=== PATIENT | male | born 1955 | race Caucasian/White ===

== ENCOUNTER 2020-07-01 11:25 | Outpatient (CLI) | payer SELFPAY ==
--- NOTE | 2020-07-01 11:37 | ECG_ITS ---
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 Interpretive Statements NAME OF STUDY: TREADMILL STRESS TEST INDICATION: [Chest Pain, ] EXERCISE DATA: The patient was exercised by Darrion protocol. Baseline heart rate was 64 beats per minute. Baseline blood pressure was 152/88 millimeters of mercury. Target heart rate was 134 beats per minute. Maximum heart rate achieved was 115bmp, which was 72% of the target heart rate. Maximum blood pressure was 249/105 millimeters of mercury. Total exercise time was 2 minutes 42 seconds. Maximum METs achieved was 4.6, maximum VO2 was 16.1. The reason for ending the test was fatiugue and inability to reach target heart rate. The patient complained of generalized fatigue during the stress test, which then resolved at the end of the test. ELECTROCARDIOGRAM: BASELINE: Showed sinus rhythm, normal axis, no significant ST-T changes at the baseline noted. [] EXERCISE: At the peak exercise level, No significant ST-T changes suggestive of ischemia noted. [] RECOVERY: During the recovery period, heart rate dropped appropriately. No significant ST-T changes in the recovery suggestive of ischemia noted. [] CONCLUSION: 1. Exercise capacity is poor 2. Heart rate response was suboptimal. Patient did not achieve target heart rate 3. Blood pressure response was hypertensive 4. Symptoms not suggestive of ischemia. 5. Stress test is non diagnostic to assess for ischemia because of poor exercise tolerance and inability to reach target heart rate. Electronically Signed On 07-06-2020 13:20:22 CHIEF KNOWLEDGE OFFICER by Nael Allison M.D. [id number]
[2020-07-01 11:39] VITALS: BMI 44.4
[2020-07-01 12:01] VITALS: BP 179/81; PULSE 83
== END 2020-07-01 11:26 | disposition home or self-care (01) ==
LOC: CDL 11:29
PROVIDERS: PCP Family Medicine; Visit Provider Family Medicine
DX: R07.9 Chest pain, unspecified (principal)
CPT/HCPCS: 93017

== ENCOUNTER 2020-10-29 12:13 | Outpatient (CLI) | payer SELFPAY ==
--- NOTE | 2020-10-29 12:21 | ECG_ITS ---
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 Interpretive Statements NAME OF STUDY: DOBUTAMINE STRESS ECHOCARDIOGRAM INDICATION: Chest Pain PROCEDURE: At the baseline, the blood pressure was 139/80 with a heart rate of 65. The electrocardiogram showed normal sinus rhythm with normal ST-T's.. The dobutamine was infused over a period of 11 minutes and 21 seconds. The maximum heart rate obtained was 134 (85 % of the maximum predicted heart rate). The blood pressure at that time was 133/39 mmHg. The patient did not have any chest pain or any significant electrocardiogram changes with the dobutamine infusion. Patient had some PVCs in the form of bigeminy with the dobutamine infusion. The physical examination remained unchanged. No arrhythmias were seen on the monitor. During the recovery phase, the patient did not have any specific symptoms. The blood pressure at the end of the recovery phase was 155/75 with a heart rate of 96 per minute. CONCLUSION: 1. No significant EKG changes with dobutamine fusion. 2. Dobutamine used ventricular arrhythmia. 3. No significant chest pain or any significant EKG changes with the dobutamine infusion 4. Sestamibi/Sestamibi perfusion scan pending; see separate report. Electronically Signed On 11-01-2020 17:38:54 CDT by Arsalan Alegria M.D. [id number]
[2020-10-29 12:56] VITALS: BMI 43.2
[2020-10-29] MEDS: perflutren protein-a microsphr 0.22 mg/mL SDV 3 mL IV (13:28)
--- NOTE | 2020-10-29 13:45 | USCV_ITS ---
Filiberto Mauro Age: 65 Gender: M : 1955 Exam Date: 10/29/2020 12:23 Ordering Phys: Arsalan Alegria MD ([email or web address]) Technologist: Javed Porter Exam Location: [facility] Indication: CHEST PAIN Rhythm: Sinus Patient History: HTN, OBESITY Cardiac Medications: CCB, BB Medications in past 24 hours: NONE Contrast: Total Dose (mL): Stress Results Protocol: Pharmacologic Peak Dose (???g/kg/min): 30 Duration (min:sec): 11:21 Atropine:(mg) Target HR: 133 Double Product: 26924 Resting HR: 64 Resting BP: 139 / 80 Peak HR: 134 Peak BP: 188 / 103 Max Predicted HR: 157 85 % Max Predicted HR Stress Summary: PATIENT WITH CHEST PAIN DURING THE INFUSION THAT RESOLVED DURING RECOVERY. BP Response: NORMAL Reason for Termination: TARGET HR REACHED Cardiac Symptoms: CHEST PAIN ECG Analysis Resting EKG: Please see separate report Stress EKG: Please see separate report Arrhythmia: Please see separate report MEASUREMENTS (Male/Female) Normal Values FINDINGS The echocardiogram was performed with the contrast injection. Basal echocardiogram revealed a normal LV size and ejection fraction. Segmental wall motion analysis revealing no gross wall motion normalities. The study quality is suboptimal.. With a low at the peak dobutamine infusion, there was good augmentation of all the segments with no dobutamine use wall motion normalities. During the recovery phase normalities wall motion returned to the baseline. CONCLUSIONS Normal echocardiographic response to dobutamine infusion No significant coronary ischemia, based on the above finding Dr Arsalan Alegria MD [facility] (Electronically Signed) Final Date: 29 October 2020 18:21 S
[2020-10-29 13:57] VITALS: BP 155/75; PULSE 98
== END 2020-10-29 12:14 | disposition home or self-care (01) ==
PROVIDERS: PCP Family Medicine; Visit Provider Internal Medicine Cardiovascular Disease
DX: R07.9 Chest pain, unspecified (principal)
CPT/HCPCS: 93017; 93350; 93352; Q9956

== ENCOUNTER 2021-05-24 08:59 | Observation (INO) | payer OTHER, SELFPAY ==
[2021-05-24] VITALS (17 sets, daily range): BP systolic 137–196; BP diastolic 76–109; PULSE 57–95; RESP 14–23; TEMP 35.6–36.8; O2SAT 5–98; BMI 43.7; BMI 41.1
--- NOTE | 2021-05-24 09:10 | CTR_ITS ---
PROCEDURE INFORMATION: Exam: CT Head Without Contrast Exam date and time: 05/24/2021 9:10 AM Age: 65 years old Clinical indication: Injury or trauma; Fall; Blunt trauma (contusions or hematomas); Injury details: Forehead; Additional info: Syncope, struck forehead TECHNIQUE: Imaging protocol: Computed tomography of the head without contrast. Total images: 203 Radiation optimization: All CT scans at this facility use at least one of these dose optimization techniques: automated exposure control; mA and/or kV adjustment per patient size (includes targeted exams where dose is matched to clinical indication); or iterative reconstruction. COMPARISON: No relevant prior studies available. RADIATION DOSE METRICS: Total DLP (mGy-cm): 689.16 FINDINGS: Brain: Normal. No hemorrhage. Unremarkable white matter. No mass effect. Cerebral ventricles: Irregular linear density projecting from the frontal horn of the right lateral ventricle to the cortex felt to represent a developmental venous anomaly. Paranasal sinuses: Visualized sinuses are unremarkable. No fluid levels. Mastoid air cells: Visualized mastoid air cells are well aerated. Bones/joints: Unremarkable. No acute fracture. Soft tissues: Right frontal scalp contusion noted. CT/CT head wo con* [id number] IMPRESSION: 1. No acute intracranial pathology detected. 2. Right frontal scalp contusion noted. Radiation Dose CTDIVOL = (mGy): DLP = 689.16 (mGy-cm)
--- NOTE | 2021-05-24 09:10 | XRR_ITS ---
PROCEDURE INFORMATION: Exam: XR Chest Exam date and time: 05/24/2021 9:10 AM Age: 65 years old Clinical indication: Injury or trauma; Fall; Blunt trauma (contusions or hematomas); Additional info: Syncope TECHNIQUE: Imaging protocol: XR of the chest. Views: 1 view. Total images: 1 COMPARISON: CR XR chest 2V* [id number] 05/10/2020 10:26 AM FINDINGS: Lungs: Nonspecific opacity in the right lung base, favoring contusion, atelectasis or pneumonia. Trace atelectasis or scar noted in the left lung base. Pleural spaces: Unremarkable. No pleural effusion. No pneumothorax. Heart/Mediastinum: Unremarkable. No cardiomegaly. Bones/joints: Osseous structures are unchanged from the prior exam. Soft tissues: Soft tissue anchor in the right glenoid. XR/XR chest 1V portable [id number] IMPRESSION: 1. Nonspecific opacity in the right lung base, favoring contusion, atelectasis or pneumonia. 2. Trace atelectasis or scar noted in the left lung base. Radiation Dose CTDIVOL = (mGy): DLP = (mGy-cm)
--- NOTE | 2021-05-24 09:10 | CTR_ITS ---
PROCEDURE INFORMATION: Exam: CT Cervical Spine Without Contrast Exam date and time: 05/24/2021 9:10 AM Age: 65 years old Clinical indication: Injury or trauma; Fall; Blunt trauma; Additional info: Syncope TECHNIQUE: Imaging protocol: Computed tomography images of the cervical spine without contrast. Total images: 320 Radiation optimization: All CT scans at this facility use at least one of these dose optimization techniques: automated exposure control; mA and/or kV adjustment per patient size (includes targeted exams where dose is matched to clinical indication); or iterative reconstruction. COMPARISON: CT head wo con* [id number] 05/24/2021 10:46 AM RADIATION DOSE METRICS: Total DLP (mGy-cm): 1018.22 FINDINGS: Bones/joints: No acute fracture. Normal alignment. Discs/Spinal canal/Neural foramina: C3-7 Degenerative disc disease with disc space narrowing and osteophyte formation. Uncovertebral joint degeneration is present. Lungs: Lung apices are normal. Soft tissues: Unremarkable. CT/CT cervical spin wo con* [id number] IMPRESSION: No acute findings. Radiation Dose CTDIVOL = (mGy): DLP = 1018.22 (mGy-cm)
--- NOTE | 2021-05-24 09:11 | ECG_ITS ---
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 Measurements Intervals [place] Rate: 78 P: 48 NM: 198 QRS: 3 QRSD: 98 T: 52 QT: 303 QTc: 347 Interpretive Statements SINUS RHYTHM NONSPECIFIC T-WAVE ABNORMALITY No previous ECG available for comparison Electronically Signed On 05-25-2021 0:25:17 CDT by Nael Allison M.D. [id number]
--- NOTE | 2021-05-24 09:13 | W.ED.SYNCOPE ---
Documented by User: RELL Todd 05/24/21 11:44 HPI - Syncope General: Chief Complaint: Syncope Stated Complaint: DIZZY; FOREHEAD PAIN S/P FALL Time Seen by Provider: 05/24/21 09:02 Source: patient and EMS Mode of arrival: EMS Limitations: no limitations and other (patient non-compliance ) History of Present Illness: HPI narrative: Patient is a 65-year-old male who presents to ED today via EMS for evaluation following a syncopal episode. Patient is a poor historian upon arrival. He tells me that he was trying to get out of his recliner when he became dizzy/lightheaded and fell forward and struck his head on the floor (carpet surface). He states he had positive loss of consciousness for approximately 2 minutes. Patient denies chest pain, shortness of breath, difficulty breathing, palpitations. He denies previous episodes of dizziness/lightheadedness or syncopal episodes. Patient states since the episode he has felt generally weak. He does not complain of specific weakness to his extremities or numbness/tingling. No facial droop or slurred speech noted upon arrival. Patient lives at home with his . He reports no medical conditions and apparently takes no medications however according to previous documentation he has a history of GERD, obesity, HTN, and chest pains. Patient had stress test/echocardiogram earlier this year. Results are as follows: Stress Echo 10/29/20 Normal echocardiographic response to dobutamine infusion No significant coronary ischemia, based on the above finding 1. No significant EKG changes with dobutamine fusion. 2. Dobutamine used ventricular arrhythmia. 3. No significant chest pain or any significant EKG changes with the dobutamine infusion Treadmill Stress Test 07/01/20 1. Exercise capacity is poor 2. Heart rate response was suboptimal. Patient did not achieve target heart rate 3. Blood pressure response was hypertensive 4. Symptoms not suggestive of ischemia. 5. Stress test is non diagnostic to assess for ischemia because of poor exercise tolerance and inability to reach target heart rate. MD complaint: loss of consciousness Onset (ago): minute(s) Duration of episode: 2 -: minutes(s) Prodromal symptoms: lightheaded Witnessed: No Injuries sustained associated with event: face (forehead hematoma) Associated symptoms: Reports lightheadedness; Deny abdominal pain, chest pain, fever(s), headache(s) or nausea Treatments prior to arrival: other (zofran as patient had one episode of emesis in route) Review of Systems Const: Denies: fever(s), chills, body aches, fatigue or malaise Eyes: Denies: change in vision, blurry vision or photophobia Card: Reports: lightheadedness and syncope; Denies: chest pain, palpitations, irregular heart rhythm, edema or pre-syncope Resp: Denies: dyspnea, productive cough, non-productive cough, pain on inspiration, hemoptysis or chest congestion GI: Denies: abdominal pain, nausea, vomiting or diarrhea : Denies: flank pain or dysuria Musc: Denies: neck pain, back pain, extremity pain or joint pain Skin/Breast: Denies: rash Neuro: Reports: dizziness; Denies: headache(s), numbness in extremities, weakness in extremities, sensory changes, lack of coordination, frequent falls, confusion, Slurred speech present or difficulty communicating thoughts PFSH ED PFSH: Medical History Atypical chest pain Benign essential HTN Exertional chest pain Hyperglycemia Obesity Obesity Surgical History History of repair of right rotator cuff Hx of foot surgery Hx of spinal surgery Family History Son Cancer Father CAD (coronary artery disease) Denies family history of Diabetes Clotting disorder Dementia Chronic kidney disease (CKD) Suicide Anesthesia complication Bleeding disorder Lung disease Stroke Social History Alcohol intake: never Physical Exam Const: COMMON NORMALS: no acute distress, patient oriented x3 and alert NUTRITIONAL APPEARANCE: obese morbidly obese ORIENTATION/CONSCIOUSNESS: Yes awake, Yes oriented to person, Yes oriented to place and Yes oriented to time OTHER: patient not very cooperative with examination and requests; he refuses to open his eyes and refuses certain cranial nerve testing HENMT: COMMON NORMALS: normocephalic and Normal external nose present HEAD & SCALP: normocephalic and other (R frontal hematoma) NOSE: Normal external nose present Eye: COMMON NORMALS: Equal, round and reactive pupils present PUPIL: Yes Equal, round and reactive pupils present OTHER: patient refuses to open his eyes during exam; lids were manually opened and he is able to look at my nose when asked; pupils are equal and responsive to light later during re-examination he does open his eyes with request and is able to track objects-I do not appreciate any gaze palsy Neck/C-Spine: COMMON NORMALS: full ROM, no lymphadenopathy and no meningeal signs CERVICAL SPINE: No pain with cervical ROM, No Cervical spine tenderness and No Paracervical muscle tenderness Resp: COMMON NORMALS: normal respiratory effort and clear to auscultation bilaterally AUSCULTATION: clear to auscultation bilaterally OTHER: pt noted to be hypoxic at roughly 88-89% on RA; he refuses oxygen Cardio: COMMON NORMALS: regular rate and regular rhythm RATE: regular rate RHYTHM: regular rhythm GI: COMMON NORMALS: Soft to palpation and non-tender INSPECTION: Yes normal to inspection AUSCULTATION: Yes normoactive bowel sounds PALPATION: Yes Soft to palpation OTHER: exam limited secondary to body habitus Extremity: COMMON NORMALS: normal to inspection, no calf tenderness and no pedal edema Neuro: SALLY COMA SCALE: document GCS findings [place] coma scale eye opening: Spontaneous Sally coma scale verbal response: Orientated Sally coma scale motor response: Obey commands [place] coma scale total score: 15 COMMON NORMALS: patient oriented x3 and CN's II-XII intact bilaterally SENSORIUM/ORIENTATION: Yes alert, Yes oriented to person, Yes oriented to place and Yes oriented to time MENINGEAL SIGNS: Yes no meningeal signs SPEECH: speech normal OTHER: patient can raise bilateral LEs off table and hold for 5+ seconds; he refuses to move either arm for motor testing; he will repairer engine production my fingers and repairer engine production strength equal bilaterally Course ED course: Patient is refusing CTs of head/cervical. He has also refused oxygen and urine. Vital Signs: Vital signs: Vital Signs Temperature 97.5 F L 05/24/21 12:17 Pulse Rate 90 05/24/21 14:06 Respiratory Rate 18 05/24/21 14:06 Blood Pressure 171/93 05/24/21 14:06 Pulse Oximetry 92 05/24/21 14:06 MDM - Syncope MDM Narrative: Medical decision making narrative: Patient is very drowsy and weak on exam. He does arrive hypoxic at 88% on room air. CXR shows a possible right lung base pneumonia. He does report a COVID infection approximately [address] head/cervical are non-acute. Labs are overall non-concerning. Patient nor his feels he is stable to go home. Spoke to Dr. Mejia who will also evaluate patient and speak to hospitalist regarding observation. Lab Data: Labs: Lab Results 05/24/21 05/24/21 05/24/21 09:00 09:00 09:00 WBC Cancelled Corrected WBC Cancelled RBC Cancelled Hgb Cancelled Hct Cancelled MCV Cancelled MCH Cancelled MCHC Cancelled RDW Cancelled Plt Count Cancelled MPV Cancelled Gran % Cancelled Neut % (Auto) Cancelled Lymph % (Auto) Cancelled Stearns % (Auto) Cancelled Eos % (Auto) Cancelled Baso % (Auto) Cancelled Neut # (Auto) Cancelled Lymph # (Auto) Cancelled Stearns # (Auto) Cancelled Eos # (Auto) Cancelled Baso # (Auto) Cancelled Absolute Gran (aut o) Cancelled Nucleated RBC % (a uto) Cancelled Nucleated RBCs # Cancelled Specimen Type Sample Site ABG pH ABG pCO2 ABG pO2 ABG HCO3 ABG O2 Saturation ABG Base Excess Joe Test Hematocrit Hgb O2 Saturation Carboxyhemoglobin Methemoglobin Total Hemoglobin Ionized Calcium O2 Delivery Device O2 Liters/Min Prosthetic Aides Teacher ID Sodium 142 mmol/L mmol/L (136-145) Potassium 3.7 mmol/L mmol/L (3.5-5.1) Chloride 107 mmol/L mmol/L (98-107) Carbon Dioxide 22 mmol/L mmol/L (22-29) Anion Gap 16.7 (5-19) BUN 13 mg/dL mg/dL (8-23) Creatinine 0.8 mg/dL mg/dL (0.7-1.2) GFR Calculation 97.6 mL/min mL/mi n (90-130) Glucose 154 mg/dL H mg/dL (65-115) Calculated Osmolal ity 297 mOsm/kg H mOs m/kg (285-295) Calcium 8.5 mg/dL mg/dL (8.5-10.5) Total Bilirubin 0.4 mg/dL mg/dL (0.15-1.2) AST 15 U/L U/L (0-40) ALT 19 U/L U/L (0-41) Alkaline Phosphata se 88 IU/L IU/L (40-130) Troponin T Baselin e 10 ng/L ng/L (0-15) Troponin T [address] [place] Troponin T Total Protein 6.1 g/dL L g/dL (6.6-8.7) Albumin 3.4 g/dL L g/dL (3.5-5.2) Globulin 2.7 g/dL g/dL (1.3-4.6) Urine Color Urine Appearance Urine pH Ur Specific Gravit y Urine Protein Urine Glucose (UA) Urine Ketones Urine Blood Urine Nitrate Urine Bilirubin Urine Urobilinogen Ur Leukocyte Kalie ase Urine Opiates Scre en Ur Barbiturates Sc reen Ur Phencyclidine S crn Ur Amphetamines Sc reen U Benzodiazepines Scrn Urine Cocaine Scre en U Marijuana (THC) Screen 05/24/21 05/24/21 05/24/21 09:47 10:52 11:14 WBC 9.1 10^3/uL 10^3/ uL (4.0-10.0) Corrected WBC RBC 4.34 10^6/uL 10^6 /uL (4.1-5.3) Hgb 12.1 g/dL g/dL (11.7-16.6) Hct 38.3 % L % (42.0-52.0) MCV 88.2 fl fl (80-94) MCH 27.9 pg L pg (28.0-34.0) MCHC 31.6 g/dL g/dL (30.0-36.0) RDW 18.9 % H % (12.1-15.1) Plt Count 377 10^3/cmm 10^3 /cmm (130-400) MPV 10.6 fL H fL (7.4-10.4) Gran % Neut % (Auto) 79.5 % % Lymph % (Auto) 11.5 % % Stearns % (Auto) 4.7 % % Eos % (Auto) 2.9 % % Baso % (Auto) 0.6 % % Neut # (Auto) 7.23 10^3/uL 10^3 /uL (1.8-7.7) Lymph # (Auto) 1.0 10^3/uL 10^3/ uL (0.8-4.8) Stearns # (Auto) 0.4 10^3/uL 10^3/ uL (0.2-0.9) Eos # (Auto) 0.3 10^3/uL 10^3/ uL (0.0-0.8) Baso # (Auto) 0.1 10^3/uL 10^3/ uL (0.0-0.1) Absolute Gran (aut o) Nucleated RBC % (a uto) 0 % % Nucleated RBCs # 0.0 /100WBC /100W BC Specimen Type Arterial Sample Site Radial, right ABG pH 7.33 L (7.35-7.45) ABG pCO2 49.5 mmHg H mmHg (35-45) ABG pO2 91.1 mmHg mmHg (80.0-100.0) ABG HCO3 26.3 mmol/L H mmo l/L (22-26) ABG O2 Saturation 97.3 ABG Base Excess -0.2 mmol/L mmol/ L (-2.0-2.0) Joe Test Pos Hematocrit 38.5 % L % (42-52) Hgb O2 Saturation 95.5 % % (95-100) Carboxyhemoglobin 0.9 %THgb %THgb (0.4-20.1) Methemoglobin 0.9 % % (0.4-1.5) Total Hemoglobin 12.5 g/dL L g/dL (14-18) Ionized Calcium 1.2 mmol/L mmol/L (1.1-1.4) O2 Delivery Device Nc O2 Liters/Min 2.0 % % Prosthetic Aides Teacher ID Broma Sodium 144.0 mmol/L H mm ol/L (131-143) Potassium 4.0 mmol/L mmol/L (3.5-5.0) Chloride Carbon Dioxide Anion Gap BUN Creatinine GFR Calculation Glucose 124.0 mg/dL H mg/ dL (70-115) Calculated Osmolal ity Calcium Total Bilirubin AST ALT Alkaline Phosphata se Troponin T Baselin e Troponin T [address] [place] Troponin T Total Protein Albumin Globulin Urine Color Yellow (Yellow) Urine Appearance Clear (CLEAR) Urine pH 5 (5-7) Ur Specific Gravit y 1.020 (1.005-1.030) Urine Protein Neg (Negative) Urine Glucose (UA) Norm (Normal) Urine Ketones Negative (Negative) Urine Blood Neg (Negative) Urine Nitrate Negative (Negative) Urine Bilirubin Neg (Negative) Urine Urobilinogen Norm mg/dL mg/dL (Negative) Ur Leukocyte Kalie ase Negative (Negative) Urine Opiates Scre en Ur Barbiturates Sc reen Ur Phencyclidine S crn Ur Amphetamines Sc reen U Benzodiazepines Scrn Urine Cocaine Scre en U Marijuana (THC) Screen 05/24/21 05/24/21 11:14 12:07 WBC Corrected WBC RBC Hgb Hct MCV MCH MCHC RDW Plt Count MPV Gran % Neut % (Auto) Lymph % (Auto) Stearns % (Auto) Eos % (Auto) Baso % (Auto) Neut # (Auto) Lymph # (Auto) Stearns # (Auto) Eos # (Auto) Baso # (Auto) Absolute Gran (aut o) Nucleated RBC % (a uto) Nucleated RBCs # Specimen Type Sample Site ABG pH ABG pCO2 ABG pO2 ABG HCO3 ABG O2 Saturation ABG Base Excess Joe Test Hematocrit Hgb O2 Saturation Carboxyhemoglobin Methemoglobin Total Hemoglobin Ionized Calcium O2 Delivery Device O2 Liters/Min Prosthetic Aides Teacher ID Sodium Potassium Chloride Carbon Dioxide Anion Gap BUN Creatinine GFR Calculation Glucose Calculated Osmolal ity Calcium Total Bilirubin AST ALT Alkaline Phosphata se Troponin T Baselin e Troponin T [address] [place] 10.08 ng/L ng/L (0-15) Delta Troponin T 0.08 ABS# ABS# (0-10) Total Protein Albumin Globulin Urine Color Urine Appearance Urine pH Ur Specific Gravit y Urine Protein Urine Glucose (UA) Urine Ketones Urine Blood Urine Nitrate Urine Bilirubin Urine Urobilinogen Ur Leukocyte Kalie ase Urine Opiates Scre en Negative ng/mL ng /mL (Negative) Ur Barbiturates Sc reen Negative ng/mL ng /mL (Negative) Ur Phencyclidine S crn Negative ng/mL ng /mL (Negative) Ur Amphetamines Sc reen Negative ng/mL ng /mL (Negative) U Benzodiazepines Scrn Negative ng/mL ng /mL (Negative) Urine Cocaine Scre en Negative ng/mL ng /mL (Negative) U Marijuana (THC) Screen Negative ng/mL ng /mL (Negative) Imaging Data^: CXR: Radiologist's impression: [facility] [address] [place] [address] XRay Report Signed Patient: Filiberto Mauro Unit #: [id number] : 1955 Age/Sex: 65 / M ADM Date: 05/24/21 Loc: ER Room/Bed: Attending Dr: Ordering Provider/Ordering MD: Janet Franklin Date of Service: 05/24/21 Procedure(s): XR chest 1V portable [id number] Accession Number(s): [id number] Report Number: [id number] PROCEDURE INFORMATION: Exam: XR Chest Exam date and time: 05/24/2021 9:10 AM Age: 65 years old Clinical indication: Injury or trauma; Fall; Blunt trauma (contusions or hematomas); Additional info: Syncope TECHNIQUE: Imaging protocol: XR of the chest. Views: 1 view. Total images: 1 COMPARISON: CR XR chest 2V* [id number] 05/10/2020 10:26 AM FINDINGS: Lungs: Nonspecific opacity in the right lung base, favoring contusion, atelectasis or pneumonia. Trace atelectasis or scar noted in the left lung base. Pleural spaces: Unremarkable. No pleural effusion. No pneumothorax. Heart/Mediastinum: Unremarkable. No cardiomegaly. Bones/joints: Osseous structures are unchanged from the prior exam. Soft tissues: Soft tissue anchor in the right glenoid. XR/XR chest 1V portable [id number] IMPRESSION: 1. Nonspecific opacity in the right lung base, favoring contusion, atelectasis or pneumonia. 2. Trace atelectasis or scar noted in the left lung base. Radiation Dose CTDIVOL = (mGy): DLP = (mGy-cm) Dictated By: Willy Darnell MD Signed By: Willy Darnell MD Signed Date/Time: 05/24/21 1016 DD/ 0910 CT Head: Radiologist's impression: [facility] [id number] [place], [place] [address]CE Scan ReportSigned Patient: Filiberto Mauro #: [id number]: 8Acct#:[id number]/Sex: 65 / MADM Date: 05/24/21Loc: ERRoom/Bed:Attending Dr: Ordering Provider/Ordering MD: Janet Franklin Date of Service: 05/24/21 Procedure(s): CT head wo con* [id number] Accession Number(s): [id number] Report Number: [id number] PROCEDURE INFORMATION: Exam: CT Head Without Contrast Exam date and time: 05/24/2021 9:10 AM Age: 65 years old Clinical indication: Injury or trauma; Fall; Blunt trauma (contusions or hematomas); Injury details: Forehead; Additional info: Syncope, struck forehead TECHNIQUE: Imaging protocol: Computed tomography of the head without contrast. Total images: 203 Radiation optimization: All CT scans at this facility use at least one of these dose optimization techniques: automated exposure control; mA and/or kV adjustment per patient size (includes targeted exams where dose is matched to clinical indication); or iterative reconstruction. COMPARISON: No relevant prior studies available. RADIATION DOSE METRICS: Total DLP (mGy-cm): 689.16 FINDINGS: Brain: Normal. No hemorrhage. Unremarkable white matter. No mass effect. Cerebral ventricles: Irregular linear density projecting from the frontal horn of the right lateral ventricle to the cortex felt to represent a developmental venous anomaly. Paranasal sinuses: Visualized sinuses are unremarkable. No fluid levels. Mastoid air cells: Visualized mastoid air cells are well aerated. Bones/joints: Unremarkable. No acute fracture. Soft tissues: Right frontal scalp contusion noted. CT/CT head wo con* [id number] IMPRESSION: 1. No acute intracranial pathology detected. 2. Right frontal scalp contusion noted. Radiation Dose CTDIVOL = (mGy): DLP = 689.16 (mGy-cm) Dictated By:Willy Darnell MDSigned By:Willy Darnell MDSigned Date/Time:05/24/21 1115DD/ 0910 CT cervical: Radiologist's impression: [facility] [address] [place] [address] CT Scan Report Signed Patient: Filiberto Mauro Unit #: [id number] : 1955 Age/Sex: 65 / M ADM Date: 05/24/21 Loc: ER Room/Bed: Attending Dr: Ordering Provider/Ordering MD: Janet Franklin Date of Service: 05/24/21 Procedure(s): CT cervical spin wo con* [id number] Accession Number(s): [id number] Report Number: [id number] PROCEDURE INFORMATION: Exam: CT Cervical Spine Without Contrast Exam date and time: 05/24/2021 9:10 AM Age: 65 years old Clinical indication: Injury or trauma; Fall; Blunt trauma; Additional info: Syncope TECHNIQUE: Imaging protocol: Computed tomography images of the cervical spine without contrast. Total images: 320 Radiation optimization: All CT scans at this facility use at least one of these dose optimization techniques: automated exposure control; mA and/or kV adjustment per patient size (includes targeted exams where dose is matched to clinical indication); or iterative reconstruction. COMPARISON: CT head wo con* [id number] 05/24/2021 10:46 AM RADIATION DOSE METRICS: Total DLP (mGy-cm): 1018.22 FINDINGS: Bones/joints: No acute fracture. Normal alignment. Discs/Spinal canal/Neural foramina: C3-7 Degenerative disc disease with disc space narrowing and osteophyte formation. Uncovertebral joint degeneration is present. Lungs: Lung apices are normal. Soft tissues: Unremarkable. CT/CT cervical spin wo con* [id number] IMPRESSION: No acute findings. Radiation Dose CTDIVOL = (mGy): DLP = 1018.22 (mGy-cm) Dictated By: Willy Darnell MD Signed By: Willy Darnell MD Signed Date/Time: 05/24/21 1116 DD/ 9 Discharge Plan Discharge Patient Disposition: Placed in Observation Admit Provider: Kevin Benson Clinical Impression: Syncope, Obesity, Atypical chest pain, Benign essential HTN Condition: Stable Coding Level of Care Code ED Technical Sourcing Recruiter for Chg Fwd Exam Comprehensive Documented by User: Manuel Mejia DO 05/24/21 14:08 HPI - Syncope General: Chief Complaint: Syncope Stated Complaint: DIZZY; FOREHEAD PAIN S/P FALL Time Seen by Provider: 05/24/21 09:02 PFSH ED PFSH: Medical History Atypical chest pain Benign essential HTN Exertional chest pain Hyperglycemia Obesity Obesity Surgical History History of repair of right rotator cuff Hx of foot surgery Hx of spinal surgery Family History Son Cancer Father CAD (coronary artery disease) Denies family history of Diabetes Clotting disorder Dementia Chronic kidney disease (CKD) Suicide Anesthesia complication Bleeding disorder Lung disease Stroke Social History Alcohol intake: never Course Vital Signs: Vital signs: Vital Signs Temperature 97.5 F L 05/24/21 12:17 Pulse Rate 90 05/24/21 14:06 Respiratory Rate 18 05/24/21 14:06 Blood Pressure 171/93 05/24/21 14:06 Pulse Oximetry 92 05/24/21 14:06 MDM - Syncope Lab Data: Labs: Lab Results 05/24/21 05/24/21 05/24/21 09:00 09:00 09:00 WBC Cancelled Corrected WBC Cancelled RBC Cancelled Hgb Cancelled Hct Cancelled MCV Cancelled MCH Cancelled MCHC Cancelled RDW Cancelled Plt Count Cancelled MPV Cancelled Gran % Cancelled Neut % (Auto) Cancelled Lymph % (Auto) Cancelled Stearns % (Auto) Cancelled Eos % (Auto) Cancelled Baso % (Auto) Cancelled Neut # (Auto) Cancelled Lymph # (Auto) Cancelled Stearns # (Auto) Cancelled Eos # (Auto) Cancelled Baso # (Auto) Cancelled Absolute Gran (aut o) Cancelled Nucleated RBC % (a uto) Cancelled Nucleated RBCs # Cancelled Specimen Type Sample Site ABG pH ABG pCO2 ABG pO2 ABG HCO3 ABG O2 Saturation ABG Base Excess Joe Test Hematocrit Hgb O2 Saturation Carboxyhemoglobin Methemoglobin Total Hemoglobin Ionized Calcium O2 Delivery Device O2 Liters/Min Prosthetic Aides Teacher ID Sodium 142 mmol/L mmol/L (136-145) Potassium 3.7 mmol/L mmol/L (3.5-5.1) Chloride 107 mmol/L mmol/L (98-107) Carbon Dioxide 22 mmol/L mmol/L (22-29) Anion Gap 16.7 (5-19) BUN 13 mg/dL mg/dL (8-23) Creatinine 0.8 mg/dL mg/dL (0.7-1.2) GFR Calculation 97.6 mL/min mL/mi n (90-130) Glucose 154 mg/dL H mg/dL (65-115) Calculated Osmolal ity 297 mOsm/kg H mOs m/kg (285-295) Calcium 8.5 mg/dL mg/dL (8.5-10.5) Total Bilirubin 0.4 mg/dL mg/dL (0.15-1.2) AST 15 U/L U/L (0-40) ALT 19 U/L U/L (0-41) Alkaline Phosphata se 88 IU/L IU/L (40-130) Troponin T Baselin e 10 ng/L ng/L (0-15) Troponin T [address] [place] Troponin T Total Protein 6.1 g/dL L g/dL (6.6-8.7) Albumin 3.4 g/dL L g/dL (3.5-5.2) Globulin 2.7 g/dL g/dL (1.3-4.6) Urine Color Urine Appearance Urine pH Ur Specific Gravit y Urine Protein Urine Glucose (UA) Urine Ketones Urine Blood Urine Nitrate Urine Bilirubin Urine Urobilinogen Ur Leukocyte Kalie ase Urine Opiates Scre en Ur Barbiturates Sc reen Ur Phencyclidine S crn Ur Amphetamines Sc reen U Benzodiazepines Scrn Urine Cocaine Scre en U Marijuana (THC) Screen 05/24/21 05/24/21 05/24/21 09:47 10:52 11:14 WBC 9.1 10^3/uL 10^3/ uL (4.0-10.0) Corrected WBC RBC 4.34 10^6/uL 10^6 /uL (4.1-5.3) Hgb 12.1 g/dL g/dL (11.7-16.6) Hct 38.3 % L % (42.0-52.0) MCV 88.2 fl fl (80-94) MCH 27.9 pg L pg (28.0-34.0) MCHC 31.6 g/dL g/dL (30.0-36.0) RDW 18.9 % H % (12.1-15.1) Plt Count 377 10^3/cmm 10^3 /cmm (130-400) MPV 10.6 fL H fL (7.4-10.4) Gran % Neut % (Auto) 79.5 % % Lymph % (Auto) 11.5 % % Stearns % (Auto) 4.7 % % Eos % (Auto) 2.9 % % Baso % (Auto) 0.6 % % Neut # (Auto) 7.23 10^3/uL 10^3 /uL (1.8-7.7) Lymph # (Auto) 1.0 10^3/uL 10^3/ uL (0.8-4.8) Stearns # (Auto) 0.4 10^3/uL 10^3/ uL (0.2-0.9) Eos # (Auto) 0.3 10^3/uL 10^3/ uL (0.0-0.8) Baso # (Auto) 0.1 10^3/uL 10^3/ uL (0.0-0.1) Absolute Gran (aut o) Nucleated RBC % (a uto) 0 % % Nucleated RBCs # 0.0 /100WBC /100W BC Specimen Type Arterial Sample Site Radial, right ABG pH 7.33 L (7.35-7.45) ABG pCO2 49.5 mmHg H mmHg (35-45) ABG pO2 91.1 mmHg mmHg (80.0-100.0) ABG HCO3 26.3 mmol/L H mmo l/L (22-26) ABG O2 Saturation 97.3 ABG Base Excess -0.2 mmol/L mmol/ L (-2.0-2.0) Joe Test Pos Hematocrit 38.5 % L % (42-52) Hgb O2 Saturation 95.5 % % (95-100) Carboxyhemoglobin 0.9 %THgb %THgb (0.4-20.1) Methemoglobin 0.9 % % (0.4-1.5) Total Hemoglobin 12.5 g/dL L g/dL (14-18) Ionized Calcium 1.2 mmol/L mmol/L (1.1-1.4) O2 Delivery Device Nc O2 Liters/Min 2.0 % % Prosthetic Aides Teacher ID Broma Sodium 144.0 mmol/L H mm ol/L (131-143) Potassium 4.0 mmol/L mmol/L (3.5-5.0) Chloride Carbon Dioxide Anion Gap BUN Creatinine GFR Calculation Glucose 124.0 mg/dL H mg/ dL (70-115) Calculated Osmolal ity Calcium Total Bilirubin AST ALT Alkaline Phosphata se Troponin T Baselin e Troponin T [address] [place] Troponin T Total Protein Albumin Globulin Urine Color Yellow (Yellow) Urine Appearance Clear (CLEAR) Urine pH 5 (5-7) Ur Specific Gravit y 1.020 (1.005-1.030) Urine Protein Neg (Negative) Urine Glucose (UA) Norm (Normal) Urine Ketones Negative (Negative) Urine Blood Neg (Negative) Urine Nitrate Negative (Negative) Urine Bilirubin Neg (Negative) Urine Urobilinogen Norm mg/dL mg/dL (Negative) Ur Leukocyte Kalie ase Negative (Negative) Urine Opiates Scre en Ur Barbiturates Sc reen Ur Phencyclidine S crn Ur Amphetamines Sc reen U Benzodiazepines Scrn Urine Cocaine Scre en U Marijuana (THC) Screen 05/24/21 05/24/21 11:14 12:07 WBC Corrected WBC RBC Hgb Hct MCV MCH MCHC RDW Plt Count MPV Gran % Neut % (Auto) Lymph % (Auto) Stearns % (Auto) Eos % (Auto) Baso % (Auto) Neut # (Auto) Lymph # (Auto) Stearns # (Auto) Eos # (Auto) Baso # (Auto) Absolute Gran (aut o) Nucleated RBC % (a uto) Nucleated RBCs # Specimen Type Sample Site ABG pH ABG pCO2 ABG pO2 ABG HCO3 ABG O2 Saturation ABG Base Excess Joe Test Hematocrit Hgb O2 Saturation Carboxyhemoglobin Methemoglobin Total Hemoglobin Ionized Calcium O2 Delivery Device O2 Liters/Min Prosthetic Aides Teacher ID Sodium Potassium Chloride Carbon Dioxide Anion Gap BUN Creatinine GFR Calculation Glucose Calculated Osmolal ity Calcium Total Bilirubin AST ALT Alkaline Phosphata se Troponin T Baselin e Troponin T [address] [place] 10.08 ng/L ng/L (0-15) Delta Troponin T 0.08 ABS# ABS# (0-10) Total Protein Albumin Globulin Urine Color Urine Appearance Urine pH Ur Specific Gravit y Urine Protein Urine Glucose (UA) Urine Ketones Urine Blood Urine Nitrate Urine Bilirubin Urine Urobilinogen Ur Leukocyte Kalie ase Urine Opiates Scre en Negative ng/mL ng /mL (Negative) Ur Barbiturates Sc reen Negative ng/mL ng /mL (Negative) Ur Phencyclidine S crn Negative ng/mL ng /mL (Negative) Ur Amphetamines Sc reen Negative ng/mL ng /mL (Negative) U Benzodiazepines Scrn Negative ng/mL ng /mL (Negative) Urine Cocaine Scre en Negative ng/mL ng /mL (Negative) U Marijuana (THC) Screen Negative ng/mL ng /mL (Negative) Discharge Plan Discharge Patient Disposition: Placed in Observation Admit Provider: Kevin Benson Clinical Impression: Syncope, Obesity, Atypical chest pain, Benign essential HTN Condition: Stable Coding Level of Care Code ED Technical Sourcing Recruiter for Chg Fwd Exam Comprehensive
[2021-05-24 09:36] LABS: Alanine Aminotransferase 19 U/L (0-41); Albumin Level 3.4 g/dL (3.5-5.2); Alkaline Phosphatase 88 IU/L (40-130); Anion Gap 16.7 (5-19); Aspartate Amino Transferase 15 U/L (0-40); Blood Urea Nitrogen 13 mg/dL (8-23); Calcium 8.5 mg/dL (8.5-10.5); Carbon Dioxide 22 mmol/L (22-29); Chloride 107 mmol/L (98-107); Creatinine Clr Calc Pharmacy 152.6669; Globulin 2.7 g/dL (1.3-4.6); Glomerular Filtration Rate 97.6 mL/min (90-130); Glucose 154 mg/dL (65-115); Osmolality Calculated 297 mOsm/kg (285-295); Potassium 3.7 mmol/L (3.5-5.1); Sodium 142 mmol/L (136-145); Total Bilirubin 0.4 mg/dL (0.15-1.2); Total Protein 6.1 g/dL (6.6-8.7); Troponin(5th) Baseline 10 ng/L (0-15)
[2021-05-24 09:53] LABS: Basophils # 0.1 10^3/uL (0.0-0.1); Basophils % 0.6 %; Eosinophils # 0.3 10^3/uL (0.0-0.8); Eosinophils % 2.9 %; Hematocrit 38.3 % (42.0-52.0); Hemoglobin 12.1 g/dL (11.7-16.6); Lymphocytes % 11.5 %; Mean Corpuscular HGB Conc 31.6 g/dL (30.0-36.0); Mean Corpuscular Hemoglobin 27.9 pg (28.0-34.0); Mean Corpuscular Volume 88.2 fl (80-94); Mean Platelet Volume 10.6 fL (7.4-10.4); Monocytes # 0.4 10^3/uL (0.2-0.9); Monocytes % 4.7 %; Neutrophils # 7.23 10^3/uL (1.8-7.7); Neutrophils % 79.5 %; Nucleated Red Blood Cells % 0 %; Platelet Count 377 10^3/cmm (130-400); Red Blood Count 4.34 10^6/uL (4.1-5.3); Red Cell Distribution Width 18.9 % (12.1-15.1); White Blood Count 9.1 10^3/uL (4.0-10.0)
[2021-05-24 11:03] LABS: ABG PCO2 49.5 mmHg (35-45); ABG PH Result 7.33 (7.35-7.45); Arterial Blood Gas Hematocrit 38.5 % (42-52); Base Excess ABG -0.2 mmol/L (-2.0-2.0); Blood Gas Allen Test Pos; Blood Gas Operator Identificat BROMA; Blood Gas Sample Site Radial, right; Blood Gas Sample Type Arterial; Carboxyhemoglobin 0.9 %THgb (0.4-20.1); HCO3 ABG 26.3 mmol/L (22-26); HGB O2 Sat 95.5 % (95-100); Ionized Calcium Level - ABG 1.2 mmol/L (1.1-1.4); Methemoglobin 0.9 % (0.4-1.5); Oxygen Device NC; Oxygen Saturation ABG 97.3; PO2 ABG 91.1 mmHg (80.0-100.0); Total Hemoglobin 12.5 g/dL (14-18)
--- NOTE | 2021-05-24 11:11 | ECG_ITS ---
[facility] Test Date: 2021-05-24 Pat Name: Filiberto Mauro Department: Room: Gender: Male Legal Job Titles: : 1955 Requested By: Janet Franklin Order Number: [id number] Lachelle MD: Arsalan Alegria M.D. Measurements Intervals [place] Rate: 69 P: 57 MO: 198 QRS: 10 QRSD: 100 T: 29 QT: 405 QTc: 435 Interpretive Statements SINUS RHYTHM Compared to ECG 05/24/2021 09:22:21 T-wave abnormality no longer present Electronically Signed On 05-25-2021 18:38:33 CDT by Arsalan Alegria M.D. [id number]
[2021-05-24 11:22] LABS: Add Urine Microscopic? NO; Charge for UA Resulting for Rev
[2021-05-24 11:25] LABS: Bilirubin Urine Neg (Negative); Blood Urine Neg (Negative); Glucose Urine UA Norm (Normal); Ketones Urine Negative (Negative); Leukocyte Esterase Urine Negative (Negative); Nitrate Urine Negative (Negative); Protein Urine Neg (Negative); Urine Appearance Clear (CLEAR); Urine Color Yellow (Yellow); Urobilinogen Urine Norm (Negative); pH Urine 5 (5-7)
[2021-05-24 11:34] LABS: Amphetamines Screen Urine Negative (Negative); Barbiturates Screen Urine Negative (Negative); Benzodiazepines Screen Urine Negative (Negative); Cocaine Screen Urine Negative (Negative); Opiate Screen Urine Negative (Negative); PCP Screen Urine Negative (Negative); THC Screen Urine Negative (Negative)
[2021-05-24 12:43] LABS: Troponin 5 2HR 10.08 ng/L (0-15); Troponin 5 2HR Delta 0.08 ABS# (0-10)
--- NOTE | 2021-05-24 14:04 | PC.NURSE ---
Called and gave report to Matilda SZYMANSKI. Pt going to [phone].
--- NOTE | 2021-05-24 14:42 | PM.HP ---
Providers/Chief Complaint Admitting Physician: Kevin Benson MD Primary Care Provider: Donnie Manuel MD Chief Complaint: DIZZY; FOREHEAD PAIN S/P FALL History of Present Illness Filiberto Mauro is a 65 year old male with past medical history of hypertension not on medication, atypical chest pain with CAD ruled out with dobutamine stress test in September 2020 as he was unable to do Lexiscan stress test because of claustrophobia presented to the ER today after having one episode of syncope and presyncope when he woke up and tried to get out of bed today morning. He states he usually sleeps in recliner. Today morning when he woke up he was feeling dizzy and when he stood up he lost his balance and fell face forward. He hit his head on hardwood floor. Denies any chest pain, palpitation, weakness in any of his arms or legs, bowel or bladder accidents prior or during the episode. As per his he did have an episode of vomiting at home and while he was brought to the ER. He denies any changes in his medications, fever, sick contacts recently. As per his he does have episodes at night when he is not breathing and has to be woken up to reinitiate breathing, snores for quite some time has never been tested or diagnosed of sleep apnea. He states usually his blood pressures are running over 180s at home and is not on medications for the same. Blood work in the ER shows a white count of 12, ABG showing a pH of 7.33, PCO2 of 49.5, PO2 of 91 on 2 L oxygen supplementation, chemistry showing a sodium 142, potassium 3.7, creatinine 0.8, AST/ALT of 15/19, UA and drug screen within normal limits with chest x-ray, CT head as below. Review of Systems General: Reports: 10 or more systems reviewed and unremarkable except in HPI and below Const: Denies: fever(s), chills, body aches, change in appetite, change in weight, malaise, night sweats, diaphoresis, change in sleep pattern, daytime sleepiness or snoring Eyes: Denies: change in vision, blurry vision, photophobia, eye discomfort or eye discharge ENMT: Denies: throat pain, enlarged tonsils, hoarseness, mouth pain, oral sores, dry mouth, tinnitus, nasal congestion or post nasal drip Card: Denies: chest pain, palpitations, irregular heart rhythm, edema, swelling of feet/ankles, lightheadedness, syncope, pre-syncope, dyspnea on exertion, orthopnea, leg pain with exertion or acrocyanosis Resp: Denies: dyspnea, productive cough, non-productive cough, wheezing, stridor, pain on inspiration, change in phlegm color, hemoptysis or chest congestion GI: Denies: abdominal pain, nausea, vomiting, hematemesis, coffee ground emesis, dysphagia, heartburn, diarrhea, constipation, bloating, GI cramping, change in bowel habits, pain on defecation, hematochezia or melena : Denies: flank pain, difficulty urinating, dysuria, urinary frequency, urinary urgency, urinary hesitancy, urinary dribbling, difficulty starting urination, change in urine stream, nocturia or hematuria Musc: Denies: neck pain, back pain, extremity pain, joint pain, joint swelling, joint redness, joint stiffness or limited range of motion Neuro: Denies: headache(s), numbness in extremities, weakness in extremities, sensory changes, lack of coordination, difficulty walking, frequent falls, dizziness, vertigo, confusion, Slurred speech present, difficulty communicating thoughts or seizure-like activity Psych: Denies: anxiety, depression, mood swings, panic attacks, hopelessness or irritability Endo: Denies: polyuria, polydipsia, tired all the time, cold intolerance, excessive sweating, flushing or heat intolerance Song/Lymph: Denies: easy bruising or easy bleeding All/Imm: Denies: tongue swelling, facial swelling or acute wheezing Medications/Allergies Home Medications Medication Instructions Recorded Confirmed Last Taken Type metoprolol tartrate 25 mg tablet 25 mg PO BID 30 Days #60 tab 02/27/21 05/24/21 05/23/21 Rx aspirin 81 mg chewable tablet 81 mg PO DAILY 90 Days #90 tab 03/31/21 05/24/21 05/23/21 Rx nitroglycerin 0.4 mg sublingual 0.4 mg SUBLINGUAL Q5M PRN 30 Days 03/31/21 05/24/21 Unknown Rx tablet #30 tab pantoprazole 40 mg granules 40 mg PO DAILY ea 03/31/21 05/24/21 05/23/21 History delayed-release for susp in packet Allergies Allergy/AdvReac Type Severity Reaction Status Date / Time No Known Allergies Allergy Verified 03/31/21 12:06 PFSH Acute PFSH: Medical History (Updated 05/24/21 @ 15:17 by Kevin Benson MD) Atypical chest pain Benign essential HTN Exertional chest pain Hyperglycemia Morbid obesity Surgical History History of repair of right rotator cuff Hx of foot surgery Hx of spinal surgery Family History Son Cancer Father CAD (coronary artery disease) Denies family history of Diabetes Clotting disorder Dementia Chronic kidney disease (CKD) Suicide Anesthesia complication Bleeding disorder Lung disease Stroke Social History Alcohol intake: never Vitals/I&O/Wt Last Vital Signs Temp 97.5 F L 05/24/21 12:17 Pulse 57 L 05/24/21 14:11 Resp 19 H 05/24/21 14:11 BP 171/93 05/24/21 14:11 Pulse Ox 5 L 05/24/21 14:11 Weight last 48 hrs Weight 149.43 kg Weight 158.757 kg Physical Exam Narrative: EXAM NARRATIVE: General: No acute distress, AO x3, morbidly obese, forehead hematoma present. HEENT: PERRLA, pupils bilaterally equal and reactive Chest: Normal vesicular breath sounds, no added sounds, equal good air entry bilaterally CVS: S1-S2 regular, no murmurs, bradycardia, no gallops, no rubs Abdomen: Soft, nontender, no organomegaly, bowel sounds present Neuro: No focal deficits, no facial deformity, AO x3, power 5/5 in all limbs Data : 05/24/21 09:47 05/24/21 09:00 A&P Assessment and plan (1) Syncope: Status: Acute (2) Fatigue: Status: Acute Qualifiers: Fatigue type: unspecified Qualified Code(s): R53.83 - Other fatigue (3) Benign essential HTN: Status: Acute (4) Morbid obesity: Status: Acute (5) Pickwickian syndrome: Status: Suspected Additional A&P Information Syncope/fatigue: Most likely secondary to chronic undiagnosed sleep apnea in setting of morbid obesity, possibility of pickwickian syndrome. PCO2 on the ABG done in the ER on the higher side, is history of snoring and episodes of apnea almost every night increasing for last few months. Can be secondary to bradycardia noticed in the ER. CAD ruled out from recent dobutamine stress test. Plan continue with troponin cycle. Stroke unlikely as patient has no deficits currently. Urine drug screen within normal limits. Check procalcitonin, TSH, iron panel, overnight pulse oximetry for possible sleep apnea, ammonia levels, HbA1c, lipid panel, urine Legionella bacterial antigen, MRSA swab. Check orthostatics. Check echocardiogram. Hypertension: Uncontrolled chronically. Goal blood pressure less than 140/90 mmHg. Start on losartan 25 mg daily, hydrochlorothiazide 25 mg daily. Decrease dose of metoprolol to 12.5 mg twice daily. Bradycardia: Decrease dose of metoprolol as above. Did have episode of arrhythmia during dobutamine stress test. Telemetry. Full code. Cardiac diet. Protonix for PUD prophylaxis. Heparin for DVT prophylaxis. Attestations Medical Necessity Statement*: Admission for less than 2 midnights for observation for further management and evaluation of syncope Time Spent in Patient Care: Greater than 35 minutes (>than 50% of time spent in counselling and/or direct pt care on unit). Coding Level of Care Code Acute Vocational Rehabilitation Specialist for [facility] Keshav Diagnoses Syncope R55 Fatigue R53.83 Fatigue type: unspecified Benign essential HTN I10 Morbid obesity E66.01 Pickwickian syndrome E66.2
--- NOTE | 2021-05-24 15:11 | ECG_ITS ---
[facility] Test Date: 2021-05-24 Pat Name: Filiberto Mauro Department: Room: 270 Gender: Male Line Tester: : 1955 Requested By: Janet Franklin Order Number: [id number] Lachelle MD: Arsalan Alegria M.D. Measurements Intervals [place] Rate: 71 P: 52 VA: 188 QRS: 15 QRSD: 99 T: 55 QT: 396 QTc: 432 Interpretive Statements SINUS RHYTHM Compared to ECG 05/24/2021 11:20:00 No significant changes Electronically Signed On 05-25-2021 18:38:41 CDT by Arsalan Alegria M.D. [id number]
[2021-05-24] MEDS: ipratropium-albuterol 3 mL Neb INHALATION ×2 (15:24→20:15)
[2021-05-24 15:25] LABS: Thyroid Stimulating Hormone 2.03 uIU/mL (0.27-4.20)
[2021-05-24 15:27] LABS: NT Pro B Type Natriuretic Pept 143 pg/mL (0-125); Procalcitonin 0.05 ng/mL (0-0.5)
[2021-05-24] MEDS: heparin 5,000 unit/mL INJ 1 mL 5000 UNIT SUBCUT ×2 (15:33→22:02)
[2021-05-24] MEDS: hydroCHLOROthiazide 25 mg Tablet PO (15:33)
[2021-05-24] MEDS: acetaminophen 325 mg Tablet 650 MG PO ×2 (15:33→22:01)
[2021-05-24] MEDS: levofloxacin-dextrose 5 % 750 MG/150 ML PREMIX 100 MG IV (15:34)
[2021-05-24] MEDS: losartan 50 mg Tablet 25 MG PO (15:34)
[2021-05-24 15:37] LABS: Iron 41 ug/dL (59-158); Percent Saturation 11.3 % (20-50); Total Iron Binding Capacity 361 mcg/dl; Unsaturated Iron Binding 320 ug/dL (112-347)
[2021-05-24 16:07] LABS: D Dimer 1.35 ug/mIFEU (0-0.59)
[2021-05-24 16:11] LABS: Ammonia 28 umol/L (16-60)
[2021-05-24 16:14] LABS: Troponin 5 6HR 10.93 ng/L (0-15); Troponin 5 6HR Delta 0.93 ng/L (0-12)
[2021-05-24] MEDS: metoprolol tartrate 25 mg Tablet 12.5 MG PO (17:32)
[2021-05-24] MEDS: budesonide 0.5 mg/2 mL Neb INHALATION (20:15)
[2021-05-25] VITALS (9 sets, daily range): BP systolic 130–143; BP diastolic 71–78; PULSE 68–87; RESP 16–18; TEMP 36.7–37.1; O2SAT 91–94
[2021-05-25] MEDS: ipratropium-albuterol 3 mL Neb INHALATION (01:55)
[2021-05-25] MEDS: acetaminophen 325 mg Tablet 650 MG PO (03:36)
--- NOTE | 2021-05-25 05:43 | PC.NURSE ---
SHIFT SUMMARY Has rested for intervals. Had cont pulse oximetry tonight and was noted to be in 90's every time in room. Has had no c/o SOB. Received po Tylenol X2 for c/o headache. Once was after breathing tx which he did not like. Stated it made him cough and made his head hurt. Did not like the way it made him feel. Talked with RT about this. Has denied any dizziness when up tonight. Has some bruising and swollen area to forehead from fall yesterday. Had c/o some pain with urination tonight. Says started after catheter was placed in the ER yesterday. Denies difficulty or decreased urine output
--- NOTE | 2021-05-25 06:31 | PC.NURSE ---
AM LABS/ECHO Pt has refused labs and ECHO as of this time. Told both to come back later.
[2021-05-25] MEDS: hydroCHLOROthiazide 25 mg Tablet PO (08:02)
[2021-05-25] MEDS: pantoprazole DR 40 mg Tablet PO (08:03)
[2021-05-25] MEDS: metoprolol tartrate 25 mg Tablet 12.5 MG PO (08:03)
[2021-05-25] MEDS: losartan 50 mg Tablet 25 MG PO (08:03)
[2021-05-25] MEDS: aspirin 81 mg Chew Tablet PO (08:03)
[2021-05-25] MEDS: budesonide 0.5 mg/2 mL Neb INHALATION (08:04)
[2021-05-25 09:41] LABS: Alanine Aminotransferase 16 U/L (0-41); Albumin Level 3.1 g/dL (3.5-5.2); Alkaline Phosphatase 74 IU/L (40-130); Anion Gap 12.1 (5-19); Aspartate Amino Transferase 12 U/L (0-40); Blood Urea Nitrogen 13 mg/dL (8-23); Calcium 9.3 mg/dL (8.5-10.5); Carbon Dioxide 27 mmol/L (22-29); Chloride 106 mmol/L (98-107); Chol HDL Ratio 3.03 mg/dL (1.0-5.00); Cholesterol 121 mg/dL (0-200); Globulin 2.8 g/dL (1.3-4.6); Glomerular Filtration Rate 75.5 mL/min (90-130); Glucose 123 mg/dL (65-115); HDL Cholesterol 40 mg/dL (60-100); LDL Cholesterol Calculated 66 mg/dL (50-129); Magnesium 1.8 mg/dL (1.7-2.3); Osmolality Calculated 293 mOsm/kg (285-295); Phosphorus 4.7 mg/dL (2.5-4.5); Potassium 4.1 mmol/L (3.5-5.1); Sodium 141 mmol/L (136-145); Total Bilirubin 0.3 mg/dL (0.15-1.2); Total Protein 5.9 g/dL (6.6-8.7); Triglycerides 75 mg/dL (0-150); VLDL Cholestrol Calculation 15 mg/dL (0-30)
[2021-05-25 10:33] LABS: Basophils # 0.1 10^3/uL (0.0-0.1); Basophils % 0.7 %; Eosinophils # 0.3 10^3/uL (0.0-0.8); Eosinophils % 3.1 %; Hemoglobin 11.3 g/dL (11.7-16.6); Lymphocytes # 1.5 10^3/uL (0.8-4.8); Lymphocytes % 16.8 %; Mean Corpuscular HGB Conc 30.5 g/dL (30.0-36.0); Mean Corpuscular Hemoglobin 26.7 pg (28.0-34.0); Mean Corpuscular Volume 87.3 fl (80-94); Mean Platelet Volume 11.7 fL (7.4-10.4); Monocytes # 0.4 10^3/uL (0.2-0.9); Monocytes % 4.7 %; Neutrophils # 6.81 10^3/uL (1.8-7.7); Neutrophils % 74.2 %; Nucleated Red Blood Cells % 0 %; Platelet Count 351 10^3/cmm (130-400); Red Blood Count 4.24 10^6/uL (4.1-5.3); Red Cell Distribution Width 17.9 % (12.1-15.1); White Blood Count 9.2 10^3/uL (4.0-10.0)
[2021-05-25 10:46] LABS: Estmated Average Glucose 123; Hemoglobin A1C 5.9 % (4.0-6.0)
--- NOTE | 2021-05-25 10:51 | PC.CHAP ---
Pastoral Care Encounter/Spiritual Assessment Type of Contact [] Declined distribution analyst visit [] Patient/Family/Request visit [] Outpatient visit [] Follow-up visit [] Physician referral [] Code/Alert [x] Routine visit [] Staff referral [] Actively dying [] Patient sleeping [] Family support [] [] Out of room [] Palliative care [] [] Receiving care in room [] Pre-surgical visit [] Trauma [] Long length of stay [] ICU visit [] Other: Relational/Emotional Strength [x] Patient feels connected with others/family/visitors/staff [] Distress [] Loneliness/isolation [] Abandonment Spirituality of Patient [x] Person of [place] [] Attends Episcopalian of their [place] [x] Believes in Prayer [] Reads Bible or Orthodoxy materials [] There are Spiritual issues to be addressed Process Coach Interventions [x Prayer [x] Active listening [x] Non-anxious presence [x] Spiritual/emotional support [] Crisis/trauma care [] Spiritual counseling [] Bereavement support [] Provided bereavement packet [] Provided Bible/devotional materials [] Provided toy/stuffed animal, coloring book to patient or family member [] Provided Communion [] Anointing/[place] [] Salvation [x] Completed spiritual assessment [] Other: Impact on Illness or Injury [] Angry [] Fearful [] Anxious [] Often cries [] Exhaustion [] Unable to work [] Unable to attend mormonism [] Unable to walk/stand [] Unable to read [] Unable to drive [] Unable to eat/drink [] Unable to sleep [] Unable to be with family [] Patient intubated [] Other: Summary Process Coach prayed with Patient. Time spent with patient 8 minutes.
--- NOTE | 2021-05-25 11:38 | PM.DCS ---
Discharge Providers Date of Admission: 05/24/21 14:24 Date of Discharge: May 25, 2021 Attending Provider at Admission: Kevin Benson MD Attending Provider at Discharge: Kevin Benson MD Primary Care Provider: Donnie Manuel MD Diagnoses at Discharge Discharge Diagnosis (1) Syncope: Status: Acute (2) Fatigue: Status: Acute Qualifiers: Fatigue type: unspecified Qualified Code(s): R53.83 - Other fatigue (3) Benign essential HTN: Status: Acute (4) Morbid obesity: Status: Acute (5) Pickwickian syndrome: Status: Suspected Reason for Visit Reason for Visit: DIZZY; FOREHEAD PAIN S/P FALL Hospital Course Hospital Course Filiberto Mauro is a 65 year old male with past medical history of hypertension not on medication, atypical chest pain with CAD ruled out with dobutamine stress test in September 2020 as he was unable to do Lexiscan stress test because of claustrophobia presented to the ER today after having one episode of syncope and presyncope when he woke up and tried to get out of bed today morning. He states he usually sleeps in recliner. Today morning when he woke up he was feeling dizzy and when he stood up he lost his balance and fell face forward. He hit his head on hardwood floor. Denies any chest pain, palpitation, weakness in any of his arms or legs, bowel or bladder accidents prior or during the episode. As per his he did have an episode of vomiting at home and while he was brought to the ER. He denies any changes in his medications, fever, sick contacts recently. As per his he does have episodes at night when he is not breathing and has to be woken up to reinitiate breathing, snores for quite some time has never been tested or diagnosed of sleep apnea. He states usually his blood pressures are running over 180s at home and is not on medications for the same. Blood work in the ER shows a white count of 12, ABG showing a pH of 7.33, PCO2 of 49.5, PO2 of 91 on 2 L oxygen supplementation, chemistry showing a sodium 142, potassium 3.7, creatinine 0.8, AST/ALT of 15/19, UA and drug screen within normal limits with chest x-ray, CT head as below. Patient was found to the hospital for further evaluation of syncope. Orthostatics were checked and remain negative. It is possible that patient's symptoms are most likely secondary to undiagnosed sleep apnea. Patient was counseled and advised in detail regarding weight loss and sleep study as an outpatient. Other etiologies regarding seizure, stroke, arrhythmia, CAD was ruled out. During hospitalization he was found to have mild bradycardia for which his dose of metoprolol was decreased. He was also found to have elevated blood pressures for which his antihypertensives were adjusted. He responded well to the treatment. He has been discharged in hemodynamically stable condition on metoprolol 12.5 mg daily, losartan hydrochlorothiazide combination once daily with advised to follow-up as an outpatient with blood pressure diary with family care provider within next 1 week for further adjustment of antihypertensives. He is also scheduled for a sleep study. Physical Exam Narrative: EXAM NARRATIVE: General: No acute distress, AO x3, morbidly obese, forehead hematoma present. HEENT: PERRLA, pupils bilaterally equal and reactive Chest: Normal vesicular breath sounds, no added sounds, equal good air entry bilaterally CVS: S1-S2 regular, no murmurs, bradycardia, no gallops, no rubs Abdomen: Soft, nontender, no organomegaly, bowel sounds present Neuro: No focal deficits, no facial deformity, AO x3, power 5/5 in all limbs Discharge Data Data Completed and Pending: Completed Studies During Hospitalization Category Date Time Status CT cervical spin wo con* [id number] Urge nt Cat Scan 05/24/21 09:[address] head wo con* [id number] Urgent Cat Scan 05/24/21 09:10 Completed XR chest 1V charles ble [id number] Urgent Exams 05/24/21 09:10 Completed Pending at discharge Category Date Time Status Blood Culture Sta t Lab 05/24/21 15:33 Results MRSA by PCR Routi ne Lab 05/24/21 14:37 Uncollected CV. echo complete * [id number] Routine Ultrasound 05/25/21 15:22 Taken Labs from last 24 hours 05/25/21 05/25/21 05/25/21 08:49 08:49 08:49 WBC 9.2 RBC 4.24 Hgb 11.3 L Hct 37.0 L MCV 87.3 MCH 26.7 L MCHC 30.5 RDW 17.9 H Plt Count 351 MPV 11.7 H Neut % (Auto) 74.2 Lymph % (Auto) 16.8 [place] % (Auto) 4.7 Eos % (Auto) 3.1 Baso % (Auto) 0.7 Neut # (Auto) 6.81 Lymph # (Auto) 1.5 [place] # (Auto) 0.4 Eos # (Auto) 0.3 Baso # (Auto) 0.1 Nucleated RBC % (a uto) 0 Nucleated RBCs # 0.0 D-Dimer A-a O2 Gradient Sodium 141 Potassium 4.1 Chloride 106 Carbon Dioxide 27 Anion Gap 12.1 BUN 13 Creatinine 1.0 GFR Calculation 75.5 L Glucose 123 H Estimat Average Gl ucose 123 Hemoglobin A1c 5.9 Calculated Osmolal ity 293 Calcium 9.3 Phosphorus 4.7 H Magnesium 1.8 Iron TIBC % Saturation Unsat Iron Binding Total Bilirubin 0.3 AST 12 ALT 16 Alkaline Phosphata se 74 Ammonia Troponin T 120 Min [place] Troponin T Troponin T Hi Sens 6Hr Troponin T Hi Sens 6Hr Delta NT-Pro-B Natriuret Pep Total Protein 5.9 L Albumin 3.1 L Globulin 2.8 Triglycerides 75 Cholesterol 121 LDL Cholesterol, C alc 66 Total VLDL Cholest rk 15 HDL Cholesterol 40 L Cholesterol/HDL Ra mary 3.03 Procalcitonin TSH 05/24/21 05/24/21 05/24/21 15:30 15:30 15:30 WBC RBC Hgb Hct MCV MCH MCHC RDW Plt Count MPV Neut % (Auto) Lymph % (Auto) [place] % (Auto) Eos % (Auto) Baso % (Auto) Neut # (Auto) Lymph # (Auto) [place] # (Auto) Eos # (Auto) Baso # (Auto) Nucleated RBC % (a uto) Nucleated RBCs # D-Dimer 1.35 H A-a O2 Gradient Sodium Potassium Chloride Carbon Dioxide Anion Gap BUN Creatinine GFR Calculation Glucose Estimat Average Gl ucose Hemoglobin A1c Calculated Osmolal ity Calcium Phosphorus Magnesium Iron TIBC % Saturation Unsat Iron Binding Total Bilirubin AST ALT Alkaline Phosphata se Ammonia 28 Troponin T 120 Min [place] Troponin T Troponin T Hi Sens 6Hr 10.93 Troponin T Hi Sens 6Hr Delta 0.93 NT-Pro-B Natriuret Pep Total Protein Albumin Globulin Triglycerides Cholesterol LDL Cholesterol, C alc Total VLDL Cholest rk HDL Cholesterol Cholesterol/HDL Ra mary Procalcitonin TSH 05/24/21 05/24/21 05/24/21 12:07 10:52 09:10 WBC RBC Hgb Hct MCV MCH MCHC RDW Plt Count MPV Neut % (Auto) Lymph % (Auto) [place] % (Auto) Eos % (Auto) Baso % (Auto) Neut # (Auto) Lymph # (Auto) [place] # (Auto) Eos # (Auto) Baso # (Auto) Nucleated RBC % (a uto) Nucleated RBCs # D-Dimer A-a O2 Gradient Not Reportable Sodium Potassium Chloride Carbon Dioxide Anion Gap BUN Creatinine GFR Calculation Glucose Estimat Average Gl ucose Hemoglobin A1c Calculated Osmolal ity Calcium Phosphorus Magnesium Iron TIBC % Saturation Unsat Iron Binding Total Bilirubin AST ALT Alkaline Phosphata se Ammonia Troponin T 120 Min [place] 10.08 Delta Troponin T 0.08 Troponin T Hi Sens 6Hr Troponin T Hi Sens 6Hr Delta NT-Pro-B Natriuret Pep Total Protein Albumin Globulin Triglycerides Cholesterol LDL Cholesterol, C alc Total VLDL Cholest rk HDL Cholesterol Cholesterol/HDL Ra mary Procalcitonin TSH 2.03 05/24/21 09:10 WBC RBC Hgb Hct MCV MCH MCHC RDW Plt Count MPV Neut % (Auto) Lymph % (Auto) [place] % (Auto) Eos % (Auto) Baso % (Auto) Neut # (Auto) Lymph # (Auto) [place] # (Auto) Eos # (Auto) Baso # (Auto) Nucleated RBC % (a uto) Nucleated RBCs # D-Dimer A-a O2 Gradient Sodium Potassium Chloride Carbon Dioxide Anion Gap BUN Creatinine GFR Calculation Glucose Estimat Average Gl ucose Hemoglobin A1c Calculated Osmolal ity Calcium Phosphorus Magnesium Iron 41 L TIBC 361 % Saturation 11.3 L Unsat Iron Binding 320 Total Bilirubin AST ALT Alkaline Phosphata se Ammonia Troponin T 120 Min [place] Troponin T Troponin T Hi Sens 6Hr Troponin T Hi Sens 6Hr [place] NT-Pro-B Natriuret Pep 143 H Total Protein Albumin Globulin Triglycerides Cholesterol LDL Cholesterol, C alc Total VLDL Cholest rk HDL Cholesterol Cholesterol/HDL Ra mary Procalcitonin 0.05 TSH Addt'l Data from Hospital Stay: Laboratory Results WBC 9.2 10^3/uL (4.0- 10.0) 05/25/21 08:49 Corrected WBC Cancelled 05/24/21 09:00 RBC 4.24 10^6/uL (4.1 -5.3) 05/25/21 08:49 Hgb 11.3 g/dL (11.7-1 6.6) L 05/25/21 08:49 Hct 37.0 % (42.0-52.0 ) L 05/25/21 08:49 MCV 87.3 fl (80-94) 05/25/21 08:49 MCH 26.7 pg (28.0-34. 0) L 05/25/21 08:49 MCHC 30.5 g/dL (30.0-3 6.0) 05/25/21 08:49 RDW 17.9 % (12.1-15.1 ) H 05/25/21 08:49 Plt Count 351 10^3/cmm (130 -400) 05/25/21 08:49 MPV 11.7 fL (7.4-10.4 ) H 05/25/21 08:49 Gran % Cancelled 05/24/21 09:00 Neut % (Auto) 74.2 % 05/25/21 08:49 Lymph % (Auto) 16.8 % 05/25/21 08:49 [place] % (Auto) 4.7 % 05/25/21 08:49 Eos % (Auto) 3.1 % 05/25/21 08:49 Baso % (Auto) 0.7 % 05/25/21 08:49 Neut # (Auto) 6.81 10^3/uL (1.8 -7.7) 05/25/21 08:49 Lymph # (Auto) 1.5 10^3/uL (0.8- 4.8) 05/25/21 08:49 [place] # (Auto) 0.4 10^3/uL (0.2- 0.9) 05/25/21 08:49 Eos # (Auto) 0.3 10^3/uL (0.0- 0.8) 05/25/21 08:49 Baso # (Auto) 0.1 10^3/uL (0.0- 0.1) 05/25/21 08:49 Absolute Gran (aut o) Cancelled 05/24/21 09:00 Nucleated RBC % (a uto) 0 % 05/25/21 08:49 Nucleated RBCs # 0.0 /100WBC 05/25/21 08:49 D-Dimer 1.35 ug/mIFEU (0- 0.59) H 05/24/21 15:30 Specimen Type Arterial 05/24/21 10:52 Sample Site Radial, right 05/24/21 10:52 ABG pH 7.33 (7.35-7.45) L 05/24/21 10:52 ABG pCO2 49.5 mmHg (35-45) H 05/24/21 10:52 ABG pO2 91.1 mmHg (80.0-1 00.0) 05/24/21 10:52 ABG HCO3 26.3 mmol/L (22-2 6) H 05/24/21 10:52 ABG O2 Saturation 97.3 05/24/21 10:52 ABG Base Excess -0.2 mmol/L (-2.0 -2.0) 05/24/21 10:52 Joe Test Pos 05/24/21 10:52 A-a O2 Gradient Not Reportable 05/24/21 10:52 Hematocrit 38.5 % (42-52) L 05/24/21 10:52 Hgb O2 Saturation 95.5 % (95-100) 05/24/21 10:52 Carboxyhemoglobin 0.9 %THgb (0.4-20 .1) 05/24/21 10:52 Methemoglobin 0.9 % (0.4-1.5) 05/24/21 10:52 Total Hemoglobin 12.5 g/dL (14-18) L 05/24/21 10:52 Sodium 144.0 mmol/L (131 -143) H 05/24/21 10:52 Potassium 4.0 mmol/L (3.5-5 .0) 05/24/21 10:52 Glucose 124.0 mg/dL (70-1 15) H 05/24/21 10:52 Ionized Calcium 1.2 mmol/L (1.1-1 .4) 05/24/21 10:52 O2 Delivery Device Nc 05/24/21 10:52 O2 Liters/Min 2.0 % 05/24/21 10:52 Fellmongery Worker ID Broma 05/24/21 10:52 Sodium 141 mmol/L (136-1 45) 05/25/21 08:49 Potassium 4.1 mmol/L (3.5-5 .1) 05/25/21 08:49 Chloride 106 mmol/L (98-10 7) 05/25/21 08:49 Carbon Dioxide 27 mmol/L (22-29) 05/25/21 08:49 Anion Gap 12.1 (5-19) 05/25/21 08:49 BUN 13 mg/dL (8-23) 05/25/21 08:49 Creatinine 1.0 mg/dL (0.7-1. 2) 05/25/21 08:49 GFR Calculation 75.5 mL/min (90-1 30) L 05/25/21 08:49 Glucose 123 mg/dL (65-115 ) H 05/25/21 08:49 Estimat Average Gl ucose 123 05/25/21 08:49 Hemoglobin A1c 5.9 % (4.0-6.0) 05/25/21 08:49 Calculated Osmolal ity 293 mOsm/kg (285- 295) 05/25/21 08:49 Calcium 9.3 mg/dL (8.5-10 .5) 05/25/21 08:49 Phosphorus 4.7 mg/dL (2.5-4. 5) H 05/25/21 08:49 Magnesium 1.8 mg/dL (1.7-2. 3) 05/25/21 08:49 Iron 41 ug/dL (59-158) L 05/24/21 09:10 TIBC 361 mcg/dl 05/24/21 09:10 % Saturation 11.3 % (20-50) L 05/24/21 09:10 Unsat Iron Binding 320 ug/dL (112-34 7) 05/24/21 09:10 Total Bilirubin 0.3 mg/dL (0.15-1 .2) 05/25/21 08:49 AST 12 U/L (0-40) 05/25/21 08:49 ALT 16 U/L (0-41) 05/25/21 08:49 Alkaline Phosphata se 74 IU/L (40-130) 05/25/21 08:49 Ammonia 28 umol/L (16-60) 05/24/21 15:30 Troponin T Baselin e 10 ng/L (0-15) 05/24/21 09:00 Troponin T 120 Min [place] 10.08 ng/L (0-15) 05/24/21 12:07 Delta Troponin T 0.08 ABS# (0-10) 05/24/21 12:07 Troponin T Hi Sens 6Hr 10.93 ng/L (0-15) 05/24/21 15:30 Troponin T Hi Sens 6Hr Delta 0.93 ng/L (0-12) 05/24/21 15:30 NT-Pro-B Natriuret Pep 143 pg/mL (0-125) H 05/24/21 09:10 Total Protein 5.9 g/dL (6.6-8.7 ) L 05/25/21 08:49 Albumin 3.1 g/dL (3.5-5.2 ) L 05/25/21 08:49 Globulin 2.8 g/dL (1.3-4.6 ) 05/25/21 08:49 Triglycerides 75 mg/dL (0-150) 05/25/21 08:49 Cholesterol 121 mg/dL (0-200) 05/25/21 08:49 LDL Cholesterol, C alc 66 mg/dL (50-129) 05/25/21 08:49 Total VLDL Cholest rk 15 mg/dL (0-30) 05/25/21 08:49 HDL Cholesterol 40 mg/dL (60-100) L 05/25/21 08:49 Cholesterol/HDL Ra mary 3.03 mg/dL (1.0-5 .00) 05/25/21 08:49 Procalcitonin 0.05 ng/mL (0-0.5 ) 05/24/21 09:10 TSH 2.03 uIU/mL (0.27 -4.20) 05/24/21 09:10 Urine Color Yellow (Yellow) 05/24/21 11:14 Urine Appearance Clear (CLEAR) 05/24/21 11:14 Urine pH 5 (5-7) 05/24/21 11:14 Ur Specific Gravit y 1.020 (1.005-1.0 30) 05/24/21 11:14 Urine Protein Neg (Negative) 05/24/21 11:14 Urine Glucose (UA) Norm (Normal) 05/24/21 11:14 Urine Ketones Negative (Negati ve) 05/24/21 11:14 Urine Blood Neg (Negative) 05/24/21 11:14 Urine Nitrate Negative (Negati ve) 05/24/21 11:14 Urine Bilirubin Neg (Negative) 05/24/21 11:14 Urine Urobilinogen Norm mg/dL (Negat sejal) 05/24/21 11:14 Ur Leukocyte Kalie ase Negative (Negati ve) 05/24/21 11:14 Urine Opiates Scre en Negative ng/mL (N egative) 05/24/21 11:14 Ur Barbiturates Sc reen Negative ng/mL (N egative) 05/24/21 11:14 Ur Phencyclidine S crn Negative ng/mL (N egative) 05/24/21 11:14 Ur Amphetamines Sc reen Negative ng/mL (N egative) 05/24/21 11:14 U Benzodiazepines Scrn Negative ng/mL (N egative) 05/24/21 11:14 Urine Cocaine Scre en Negative ng/mL (N egative) 05/24/21 11:14 U Marijuana (THC) Screen Negative ng/mL (N egative) 05/24/21 11:[address] 05/24/21 09:10 IMPRESSION: No acute findings. Radiation Dose CTDIVOL = (mGy): DLP = 1018.22 (mGy-cm) Chest X-Ray 05/24/21 09:10 IMPRESSION: 1. Nonspecific opacity in the right lung base, favoring contusion, atelectasis or pneumonia. 2. Trace atelectasis or scar noted in the left lung base. Radiation Dose CTDIVOL = (mGy): DLP = (mGy-cm) Head CT 05/24/21 09:10 IMPRESSION: 1. No acute intracranial pathology detected. 2. Right frontal scalp contusion noted. Radiation Dose CTDIVOL = (mGy): DLP = 689.16 (mGy-cm) Vitals: Last Vital Signs Temp 98.0 F 05/25/21 07:25 Pulse 74 05/25/21 08:11 Resp 18 05/25/21 08:05 BP 143/72 05/25/21 08:03 Pulse Ox 93 05/25/21 08:05 Discharge Plan Discharge Patient Disposition: Home Condition: Stable Prescriptions: New metoprolol succinate 25 mg tablet extended release 24 hr 12.5 mg PO DAILY Qty: 30 RF: 0 losartan-hydrochlorothiazide 50-12.5 mg tablet 1 tab PO DAILY Qty: 30 RF: 0 Continued pantoprazole [Protonix] [address] for susp in packet 40 mg PO DAILY RF: 0 aspirin [Meseret Chewable Aspirin] 81 mg tablet,chewable 81 mg PO DAILY 90 Days Qty: 90 RF: 0 nitroglycerin 0.4 mg tablet, sublingual 0.4 mg sublingual Q5M PRN (Reason: chest pain) 30 Days Qty: 30 RF: 3 Discontinued metoprolol tartrate 25 mg tablet 25 mg PO BID 30 Days Qty: 60 RF: 5 Discharge Orders: Discharge Order (Routine); Ordered 05/25/21 Ordered By: Kevin Benson Other Ambulatory Orders: Sleep Study W Sleep Stage (Routine) Timeframe: 1 Week Facility: [facility] - Location: [facility] Ordered By: Kevin Benson Referrals: Donnie Manuel MD [Primary Care Provider] - 7-10 days Discharge Diet: Cardiac, Low Salt and Low Fat Discharge Activity: Resume usual activity Patient Instructions: Opioid Safety Activity Restrictions/Additional Instructions: Please try and lose up to 20 pounds of weight. Your blood pressure medications have been adjusted. Please take losartan/hydrochlorothiazide combination once daily, metoprolol dose has been decreased to 12.5 mg daily. Please check your blood pressure twice daily at home and maintain a blood pressure diary. Please follow-up with your primary care provider for further adjustment of antihypertensives. As discussed in detail you should have a sleep study as an outpatient to rule out sleep apnea and possible adjustment of BiPAP for home. Discharge Attestations Time Spent in Discharge Care*: greater than 30 min Specific Discharge Activities: educating patient, educating and/or supporting family/caregiver, discussing with egg caser/social workers/dc planners, documenting/other paperwork and evaluating patient/reviewing data Status at Discharge: Cognitive status at discharge: cognitively intact, Behavioral status at discharge: cooperative, Functional status at discharge: independent ambulation Overall status at discharge: patient is back to baseline Quality Metrics Clinical Quality Measures During this hospital stay, did patient experience: None Coding Level of Care Code Acute Chg FW DC note Diagnoses Syncope R55 Fatigue R53.83 Fatigue type: unspecified Benign essential HTN I10 Morbid obesity E66.01 Pickwickian syndrome E66.2
--- NOTE | 2021-05-25 15:22 | USCV_ITS ---
Filiberto Mauro Age: 65 Gender: M : 1955 Exam Date: 05/25/2021 07:21 Ordering Phys: Kevin Benson MD Technologist: Virginia Estrada [place]am [place] [facility] [place] Indication: SYNCOPE BP: 130 / 78 HR: 70 Rhythm: Sinus Technical Quality: Very technically difficult study MEASUREMENTS (Male / Female) Normal Values 2D ECHO LV Diastolic Diameter PLAX 4.6 cm 4.2 - 5.9 / 3.9 - 5.3 cm LV Systolic Diameter PLAX 3.5 cm IVS Diastolic Thickness 1.9 cm 0.6 - 1.0 / 0.6 - 0.9 cm IVS Systolic Thickness 2.8 cm LVPW Diastolic Thickness 2.1 cm 0.6 - 1.0 / 0.6 - 0.9 cm LVPW Systolic Thickness 2.8 cm LVOT Diameter 2.0 cm LV Ejection Fraction 2D Teich 47.3 % LA Diameter 4.4 cm Aorta at Sinotubular Diameter 3.0 cm M-MODE MV E Point Septal Separation 0.7 cm DOPPLER PV Peak Velocity 87.0 cm/s RV Acceleration Time 0.2 s RV Ejection Time 0.3 s RV AcT/ET 0.5 FINDINGS Left Ventricle Normal left ventricular size and systolic function, EF 55%. No gross wall motion normalities.. Right Ventricle Normal right ventricular size and systolic function. Right Atrium Appears to be of normal size Left Atrium Appears to be of normal size Mitral Valve No gross abnormalities noted Aortic Valve No gross abnormalities noted Tricuspid Valve No gross abnormalities noted Pulmonic Valve No gross abnormalities noted Pericardium Aorta Normal aortic annulus size. CONCLUSIONS Normal left ventricular size and systolic function, EF 55%. No gross wall motion normalities.. Possibly normal chamber sizes. No significant stenotic or regurgitant lesions. No intracardiac masses. No pericardial effusion. Technically difficult study because of poor ultrasonic window Dr Arsalan Alegria MD [facility] (Electronically Signed) Final Date: 26 May 2021 22:39 S
--- NOTE | 2021-05-26 17:52 | PC.RESP ---
Smoking Cessation information sent to patient.
== END 2021-05-25 12:30 | disposition home or self-care (01) ==
LOC: ER 11:42 → MEDSURG 14:08
PROVIDERS: Physician Assistant; Admitting Provider Student in an Organized Health Care Education/Training Program; Emergency Provider Family Medicine; PCP Family Medicine; Visit Provider Student in an Organized Health Care Education/Training Program
DX: R55 Syncope and collapse (principal); R53.83 Other fatigue; R00.1 Bradycardia, unspecified; I10 Essential (primary) hypertension; E66.01 Morbid (severe) obesity due to excess calories; Z68.41 Body mass index [BMI] 40.0-44.9, adult; K21.9 Gastro-esophageal reflux disease without esophagitis; Z79.82 Long term (current) use of aspirin; Z82.49 Family history of ischemic heart disease and other diseases of the circulatory system
CPT/HCPCS: 36415; 36600; 70450; 71045; 72125; 80051; 80053; 80061; 80306; 81003; 82140; 82330; 82805; 83036; 83540; 83550; 83735; 83880; 84100; 84145; 84443; 84484; 85025; 85378; 86403; 87040; 87449; 93005; 93306; 94640; 94664; 96365; 96372; 99285; G0378; J1644; J1956; J7626

== ENCOUNTER → 2022-03-04 11:45 | Outpatient (BNVA) | payer OTHER, SELFPAY | PROVIDERS: PCP Family Medicine; Visit Provider Internal Medicine Cardiovascular Disease | DX: R07.9 Chest pain, unspecified (principal) | CPT/HCPCS: 36415; 80048; 85025; 85610; 86850; 86900 ==

== ENCOUNTER 2022-03-11 07:05 | Outpatient (CLI) | payer OTHER, SELFPAY ==
[2022-03-11] VITALS (19 sets, daily range): BP systolic 132–189; BP diastolic 70–104; PULSE 48–88; RESP 17–25; TEMP 37; O2SAT 93–97; BMI 42.5
--- NOTE | 2022-03-11 07:30 | XACV_ITS ---
Exam Room: 2 Ht: 191 cm Wt: 154 kg BSA: 2.92 m2 Gender: Male : 1955 Any Known Allergies: No known allergies Exam Priority: Routine Procedure(s): Procedure Description: Diagnostic procedure Procedure Description: Left Heart Catheterization Procedure Description: Coronary Angiography Raji KHAN; Diagnostic Cath Status: Elective Diagnostic Findings * No significant disease noted in the Left Main, Left Anterior Descending, Right, or Circumflex coronary arteries. * Coronary angiography shows right dominance. Conclusions 1. No significant disease noted in the Left Main, Left Anterior Descending, Right, or Circumflex coronary arteries. Recommendations * Aggressive risk factor modification. * Outpatient cardiology follow up in 4 weeks. Interventional RX Recommendation: medical therapy and/or counseling Diagnostic RX Recommendation: medical therapy and/or counseling LV EDP: 19 mmHg Pressures Phase:Rest AO : 170 / 87 ( 121 ) @ 10:08:00 AM 174 / 77 ( 124 ) @ 10:08:00 AM LV : 187 / -20 / 19 @ 10:07:00 AM 188 / -14 / 23 @ 10:08:00 AM Valves Phase:DefaultPhase AV : 17.0 @ 9:15:02 AM AV Mean Gradient: 20.0 @ 9:15:02 AM Clinical Evaluation EBL: 5mL-10mL Procedural Details Procedure Consent Obtained. Admit Source: Out Patient. Pre-Procedure Time Out. Identified patient by full name and date of as verbalized by the patient/guarantor. Does the consent match the physician's order: Yes. Accurate & Complete Informed Consent: Yes. Inpatient/Outpatient History & Physical on Chart: Yes. If H&P is completed, is and addenduem needed: No; If yes, is the addendum complete: N/A. Visualize and Verify Site with Patient/Guarantor: N/A. Relevant Radiology Images available: No. The risks, benefits, and alternatives of sedation and/or procedure were discussed by physician. The patient agrees to continue. Procedure started. [facility] Clinical Fraility Score: 3: Managing Well. Adjusto Writer Operator Indications: Worsening Angina. Chest Pain Symptom Assessment: Atypical Angina Symptoms. Correct patient, site and procedure confirmed by cath team. Current diagnosis: Chest Pain. PERRLA. Strong, equal hand bakery products checker bilaterally. Lungs clear x 5 lobes. IV Site on Arrival: 20 gauge in the right forearm. Pre Procedural Pulses: bilateral dorsalis pedis was 2+. Pre Procedural Pulses: bilateral posterior tibial was 2+. Pre Procedural Pulses: bilateral radial was 2+. Oxygen started at 2liters/min via nasal canula. right radial was prepped with chloroprep then draped in the usual sterile fashion. right groin was prepped with chloroprep then draped in the usual sterile fashion. Physician notified. Baseline sample Acquired. HR: 57 BPM. Physician arrived. Physician scrubbed in. Immediate Pre-Procedure Time Out. Correct Patient: Yes; Correct Procedure: Yes; Correct Site: Yes; Correct Patient Position: Yes; Correct Supplies: Yes; Dried Flammable Prep: Yes; Blood Products Available: No;. Lidocaine 1% infiltrated to the right radial. Arterial access obtained. A 5 czech TIG catheter in over wire. Multiple views taken of right coronary artery. Catheter redirected to the LCA. Multiple views taken of left coronary artery. EDP Sample taken: LV 187/-21,19; HR: 74 BPM; SpO2: 96%. Pullback taken: LV 188/-15,23; AO 170/87(121); Mean: 20mmHg, Peak to Peak: 17mmHg, SEP: 23sec/min; HR: 77 BPM; SpO2: 96%. LV EDP: 19. A TR Band was successful obtaining hemostatsis at the Right Radial artery insertion site. Post Procedure: Pulses reassessed and unchanged. PERRLA. Strong, equal hand bakery products checker bilaterally. No VTE prophylaxis required. Medication's Wasted: Nitro = 49.8 mg. Medication's Wasted: Heparin = 1000 unit. Medication's Wasted: Other = Hydralizine 10 mg. Medication's Wasted: Other = Fentanyl 25 mcg. Total IV fluids: 50 mL. Post-op diagnosis: Non- obstructive CAD. Complications: None. Estimated blood loss: 5mL-10mL. Responsiveness - Normal response to verbal stimuli; alert and oriented, PERRLA. Airway - Unaffected, no intervention required; spontaneous ventilation. Circulation: W/N/L, pulses unchanged. Nausea/Vomiting: N/A. Procedure completed. Patient transferred by wheelchair to 1st floor. Vital chart was stopped. Access Site Site: Right Radial artery Sheath Size: 6 Fr Hemostasis Method: TR Band Hemostasis Success: Successful Procedure Medications Start: 8:48 AM Stop: 8:48 AM Medication: Versed Amount: 1 mg Route: I.V. Start: 8:48 AM Stop: 8:48 AM Medication: Fentanyl Amount: 50 mcg Route: I.V. Start: 8:57 AM Stop: 8:57 AM Medication: Versed Amount: 1 mg Route: I.V. Start: 8:57 AM Stop: 8:57 AM Medication: Fentanyl Amount: 25 mcg Route: I.V. Start: 8:58 AM Stop: 8:58 AM Medication: Nitrogylcerin Amount: 200 mcg Route: I.A. Start: 8:59 AM Stop: 8:59 AM Medication: Heparin Amount: 5000 units Route: I.V. Start: 9:10 AM Stop: 9:10 AM Medication: Hydralazine Amount: 10 mg Route: I.V. I, the attending physician, have reviewed and verified all procedure medications. Yes, all medications given per verbal order History/Risk Factors Hypertension: Yes Dyslipidemia: No Peripheral Arterial Disease (PAD): No Myocardial Infarction ([place]): No Obesity: Yes Renal Disease: No Tobacco Use: Current/Recent(w/in 1 year) Prior Interventions PCI: No CABG: No Valve Surgery: No Report Signatures Finalized by Nael Allison MD on 03/21/2022 02:06 PM
[2022-03-11] MEDS: diphenhydrAMINE 50 mg Capsule PO (07:35)
--- NOTE | 2022-03-11 08:54 | W.PM.OPSUD ---
Surgery/Procedure H&P Update DATE OF PROCEDURE: March 11, 2022 DATE H&P PERFORMED: 03/04/22 H&P UPDATE INFORMATION: I have reviewed H&P completed within last 30 days, I have examined patient prior to procedure and No changes to prior documentation PREOP DIAGNOSIS: Worsening angina PRIMARY INDICATION FOR PROCEDURE: Worsening angina PLANNED PROCEDURE: Operation Date: 03/11/22 08:30 Proposed Procedures p Left Cardiac Catheterization 76900,R07.9(Left) - Arsalan Alegria MD PATIENT REASSESSED PRIOR TO SEDATION, WITH NO CHANGE NOTED: Yes PHYSICAL EXAM: alert, oriented x 3, clear to auscultation bilaterally and regular rate & rhythm AIRWAY EVAL/ANESTHESIA PLAN: ASA III, Local Anesthesia, Risks, benefits & alternatives of sedation and/or procedure discussed and Patient agrees to continue as planned ADDITIONAL INFORMATION: Moderate sedation
== END 2022-03-11 14:20 | disposition home or self-care (01) ==
LOC: CCL 07:12 → CSU 09:34
PROVIDERS: Internal Medicine; PCP Family Medicine; Visit Provider Internal Medicine Cardiovascular Disease
DX: R07.89 Other chest pain (principal); I10 Essential (primary) hypertension; E66.9 Obesity, unspecified; K21.9 Gastro-esophageal reflux disease without esophagitis; F17.220 Nicotine dependence, chewing tobacco, uncomplicated; E66.01 Morbid (severe) obesity due to excess calories; Z68.41 Body mass index [BMI] 40.0-44.9, adult
CPT/HCPCS: 36415; 93452; 93458; 96360; 99152; 99153; C1769; C1887; C1894; J0360; J1644; J2250; J3010; J3490; J7030; Q0163; Q9967

== ENCOUNTER → 2022-10-26 13:18 | Outpatient (BNVA) | payer SELFPAY | PROVIDERS: PCP Family Medicine; Visit Provider Student in an Organized Health Care Education/Training Program | DX: G56.22 Lesion of ulnar nerve, left upper limb (principal); G56.02 Carpal tunnel syndrome, left upper limb; M79.642 Pain in left hand | CPT/HCPCS: 73130 ==

== ENCOUNTER → 2022-11-18 08:13 | Outpatient (BNVA) | payer MEDICARE, SELFPAY | PROVIDERS: PCP Family Medicine; Referring Provider Family Medicine; Visit Provider Orthopaedic Surgery | DX: M75.101 Unspecified rotator cuff tear or rupture of right shoulder, not specified as traumatic (principal) | CPT/HCPCS: 20610; 73030; 99214; J0702; J3490 ==

== ENCOUNTER → 2022-11-23 09:03 | Outpatient (BNVA) | payer MEDICARE, SELFPAY | PROVIDERS: PCP Family Medicine; Visit Provider Specialist | DX: G56.02 Carpal tunnel syndrome, left upper limb (principal); G56.22 Lesion of ulnar nerve, left upper limb | CPT/HCPCS: 95908; 95910 ==

== ENCOUNTER → 2023-03-30 11:14 | Outpatient (BNVA) | payer MEDICARE, SELFPAY | PROVIDERS: PCP Family Medicine; Visit Provider Student in an Organized Health Care Education/Training Program | DX: G56.22 Lesion of ulnar nerve, left upper limb; G56.02 Carpal tunnel syndrome, left upper limb | CPT/HCPCS: 73080; 99214 ==

== ENCOUNTER 2023-04-21 06:55 | Day surgery (SDC) | payer MEDICARE, SELFPAY ==
[2023-04-21] VITALS (11 sets, daily range): BP systolic 142–178; BP diastolic 68–106; PULSE 61–100; RESP 16–24; TEMP 36.1–36.5; O2SAT 92–96; BMI 42.5
[2023-04-21] MEDS: acetaminophen 1,000 MG/100 ML PIGGYBACK 400 MG IV (07:55)
[2023-04-21] MEDS: ketorolac 30 mg/mL INJ IVP (07:56)
[2023-04-21] MEDS: sodium chloride 0.9% 1,000 ML 30 ML IV (08:06)
--- NOTE | 2023-04-21 08:17 | W.PM.OPSUD ---
Surgery/Procedure H&P Update DATE OF PROCEDURE: April 21, 2023 DATE H&P PERFORMED: 03/30/23 H&P UPDATE INFORMATION: I have reviewed H&P completed within last 30 days, I have examined patient prior to procedure and No changes to prior documentation PREOP DIAGNOSIS: Left Carpal Tunnel syndrome, left cubital tunnel syndrome PRIMARY INDICATION FOR PROCEDURE: Left carpal tunnel syndrome, left cubital tunnel syndrome PLANNED PROCEDURE: Operation Date: 04/21/23 08:25 Proposed Procedures p LEFT CARPAL TUNNEL RELEASE 59441 AND LEFT CUBITAL TUNNEL RELEASE WITH POSSIBLE ULNAR NERVE TRANSPOSITION 70908,G56.22,G56.2(Left) - DO mathew Lopez Cubital Tunnel Release(Left) - DO mathew Lopez Poss Ulnar Nerve Transposition(Left) - Justin Camacho DO
--- NOTE | 2023-04-21 08:27 | ANES.PREANE2 ---
Pre-Anesthetic Assessment Height/Weight: Height 1.91 m Weight 154.221 kg Temp Pulse Resp BP Pulse Ox O2 Del Method 96.9 F L 72 18 163/106 93 Room Air 04/21/23 07:35 04/21/23 07:35 04/21/23 07:35 04/21/23 07:35 04/21/23 07:35 04/21/23 07:35 Preop Diagnosis: Left Carpal Tunnel syndrome, left cubital tunnel syndrome Operation Date: 04/21/23 08:25 Proposed Procedures p LEFT CARPAL TUNNEL RELEASE 06255 AND LEFT CUBITAL TUNNEL RELEASE WITH POSSIBLE ULNAR NERVE TRANSPOSITION 53187,G56.22,G56.2(Left) - Justin Trousdale, DO s Cubital Tunnel Release(Left) - Justin Janice, DO s Poss Ulnar Nerve Transposition(Left) - Justin Trousdale, DO Was Beta Florence taken within 24 hours: N/A Was Clonidine taken within 24 hours: N/A Last intake: Intake Last Liquid Date 04/20/23 Last Liquid Time 19:00 Last Solid Date 04/20/23 Last Solid Time 19:00 Social No tobacco Exam alert, oriented x 3, clear to auscultation bilaterally and regular rate & rhythm Airway Submandibular: within normal limits Cervical ROM: within normal limits Mallampati: Class II History/ROS No significant history except as noted and No significant complaints CV/HEM Cardiac dobutamine stress test in 2020 normal, no ischemia. Echo 2021 nml EF 55%, valves ok. GI Gastroesophageal Reflux Disease Metabolic Morbid Obesity Anesthetic Plan ASA status: 3 Anesthesia: General Risk of > 500 ml blood loss (7ml/kg in children): No Medications/Allergies Home Medications Medication Instructions Recorded Confirmed Last Taken Type nitroglycerin 0.4 mg sublingual 0.4 mg sublingual Q5M PRN chest 03/31/21 04/20/23 Unknown Rx tablet pain 30 days #30 tabs ondansetron 4 mg disintegrating 4 mg PO Q8H PRN nausea and 04/21/23 Unknown Rx tablet vomiting 3 days #9 tabs tramadol 50 mg tablet 50 mg PO Q6H PRN pain #20 tabs 04/21/23 Unknown Rx Allergies Allergy/AdvReac Type Severity Reaction Status Date / Time No Known Allergies Allergy Verified 04/21/23 07:11 Current Medications Generic Name Dose Route Start Last Admin Trade Name Freq PRN Reason Stop Dose Admin Sodium Chloride 1,000 mls @ 30 mls/hr 04/21/23 07:15 04/21/23 08:06 Sodium Chloride 0.9% IV 04/22/23 07:14 30 mls/hr .Q24H VIMAL Administration PFSH Anesthesia Medical History Atypical chest pain Benign essential HTN Exertional chest pain Hyperglycemia Morbid obesity Surgical History History of repair of right rotator cuff Hx of foot surgery Hx of spinal surgery Family History Son Cancer Father CAD (coronary artery disease) Denies family history of Diabetes Clotting disorder Dementia Chronic kidney disease (CKD) Suicide Anesthesia complication Bleeding disorder Lung disease Stroke Social History Smoking and tobacco status: never smoked Alcohol intake: never Substance/Drug Use: never Data Anesthesia Cardiac Studies: Echocardiogram 05/25/21 Stress Echocardiogram 10/29/20
[2023-04-21] MEDS: ceFAZolin 2,000 MG in sodium chloride 0.9% (plus) 50 ML 100 MG IV (08:50)
[2023-04-21] MEDS: ceFAZolin 1,000 mg SDV 1000 MG IVP (09:12)
[2023-04-21] MEDS: ROPivacaine 0.5% SDV 30 mL 150 MG INJECTION (09:28)
[2023-04-21] MEDS: lidocaine-epi 1% 20 mL INJ INJECTION (09:28)
--- NOTE | 2023-04-21 10:38 | W.PM.BPON ---
Date of procedure: [April 21, 2023] Surgeon name: Dr. Janice AYALA Software Quality Assurance Engineer(s) name(s): [Albaro Camacho physician assistant professor of english] Procedure(s) performed: [Left carpal tunnel release and left cubital tunnel release] Description of findings: [Left Carpal tunnel syndrome and left cubital tunnel syndrome] Estimated blood loss: [10 ml] Specimen(s) removed: [none] Post-operative diagnosis: [Left Carpal tunnel syndrome and left cubital tunnel syndrome]
--- NOTE | 2023-04-21 10:40 | P.OP_ITS ---
Operative Report Date of procedure: April 21, 2023 Surgeon: Justin Camacho DO Procedure: Preoperative diagnosis: Left carpal tunnel syndrome Left cubital tunnel syndrome Postop Diagnosis: Same Procedure done: Left carpal tunnel release Left?cubital?tunnel tunnel release (ulnar nerve decompression at elbow) Surgeon: Justin Camacho DO Airline Security Representative: Albaro Camacho PA-C PA was necessary for assistance in this case with retraction, protection of neurovascular structures as well as assist in wound closure. Estimated blood loss: 10 mL Tourniquet? 46 minutes IV fluids: 900 mL Complications: None Findings: See operative report narrative Condition: stable Disposition: same day Brief History: Patient's been seen and worked up in the outpatient setting and findings consistent with preoperative diagnosis.? Patient has left carpal tunnel syndrome as well as left?cubital?tunnel syndrome which has been worked up in the outpatient setting has physical exam findings consistent with this as well as c onfirmatory nerve conduction/EMG nerve conduction study consistent with diagnosis.? Patient's failed conservative treatment.? As result through shared decision making agreed to proceed with?left carpal tunnel and left?cubital?tunnel release with possible ulnar nerve transposition we talked about treatment options as far as nonoperative and operative intervention.? Understands risk benefits complication alternatives surgical nonsurgical treatment options.? Understanding his risks he agrees to proceed with surgical intervention. Understanding these risks he agrees to proceed with surgery.? Consent obtained in office. Procedure: Patient seen evaluate in the preoperative holding area.? Consent was reviewed and signed with patient.? Correct extremity marked.? Patient seen evaluated by anesthesia department once cleared for surgery was then taken back to the operative suite placed in supine position all bony prominences well-padded patient properly secured to bed.? Left upper extremity placed onto armboard.? Nonsterile tourniquet applied left upper arm.? Patient then underwent anesthesia per the anesthesia department.? Patient's left upper extremity was then prepped and draped in standard orthopedic fashion.? Final timeout performed.? Patient received appropriate preoperative antibiotics. Esmarch was used exsanguinate the left upper extremity.? Tourniquet was insufflated to 250 mmHg. I started with the carpal tunnel release first.? I made a standard open carpal tunnel release starting with the distal most extent in the palm at the Augustine's cardinal line and the incision line was made in line with the fourth ray and ended just distal to the wrist crease.? Sharp scalpel incision was made through skin and subcutaneous tissue I then utilizing self retainer then began to dissect with dissection scissors split longitudinally the palmar fascia.? Next I then utilizing my clinical nursing assistant Chava retractors subsequently utilizing scalpel feathered through the palmaris brevis as well as through the transverse carpal ligament distally.? Once I encountered the floor of the transverse carpal ligament and entered into the carpal tunnel I then switched to dissection scissors.? Carefully released the distal extent of the transverse carpal ligament to the palmar fat.? Care was to protect the recurrent branch and not injured this during this part of the case.? Nasal speculum was placed proximally to retract soft tissue for direct visualization over top of the transverse carpal ligament. Next I then placed a Hamel underneath the transverse carpal ligament proximally to protect the nerve in the carpal tunnel contents.? And then I subsequently under loupe magnification utilize my dissection scissors to release the transverse carpal ligament into the antebrachial fascia under direct visualization with care to keep my scissors with a curved ulnarly away from the palmar cutaneous branch.? The transverse carpal was then completely decompressed proximally and a Hamel was then placed both distally and proximally throughout the carpal tunnel and had complete decompression of the nerve.? The nerve did appear to have hourglass shape as it went through the carpal tunnel.? With significant irritation noted around the nerve.? No masses were noted within the contents of the carpal tunnel.? This completed the carpal tunnel release and then I subsequently irrigated the wound bed and placed a wet Ray-Emili into the incision for later closure. Next marked out the landmarks of the elbow of the medial epicondyle and olecranon and made a curvilinear incision following the course of the ulnar nerve at the medial aspect of the elbow.? Sharp scalpel incision was made through skin and subcutaneous tissue.? Next I switched to Littler dissection scissors and spread in plane of the medial antebrachial cutaneous nerve branching which was protected throughout this part of the dissection.? Then I directly came down over the fascia and identified the 2 heads of the FCU fascia and split this right in the middle and subsequently identified my ulnar nerve distally.? This was then completely released distally under direct visualization and loupe magnification.? Once the nerve was then identified I then subsequently tracked this proximally and released this through Madera's ligament as well as complete decompression of the nerve proximally all the way past the intermuscular septum.? The nerve was completely released and decompressed both proximally and distally.? Ulnar nerve neurolysis performed and completed both proximally and distally with dissection scissors.? I then took the elbow through range of motion and there was no instability or subluxating of the ulnar nerve.? This completed?cubital?tunnel release.? ?Next the wound bed was thoroughly irrigated.? Tourniquet was deflated.? Hemostasis was satisfactory at the?cubital?tunnel release surgery site. I then inspected the carpal tunnel incision and this was found to have satisfactory hemostasis and all this was maintained through bipolar electrocautery.? At this point time I sequentially closed?cubital?tunnel site with 3-0 Vicryl suture in a running horizontal mattress nylon stitch.? ? The carpal tunnel release surgery was then closed in standard interrupted mattress fashion.? Dressing was Xeroform 4 x 4's ABD Curlex soft roll and an Christian wrap has a bulky soft dressing. Patient was then awakened from anesthesia and taken to PACU in stable condition. Disposition: Patient taken to PACU in stable condition recovering well.? Patient will receive appropriate discharge instructions as well as pain medication postoperatively.? We will follow-up with me in the office in 2 weeks.? Patient understands agrees with current plan.? All questions answered.? He understands if any questions or concerns and contact the office for follow-up appointment..
--- NOTE | 2023-04-21 10:41 | PM.PACU ---
PACU note Narrative: Patient is a 67-year-old male who just underwent a left carpal tunnel release and left cubital tunnel release. Patient transferred to PACU in stable condition. Patient is still somnolescent due to anesthesia. Unable to do full exam. Dressing on left arm is dry and intact. Hand and fingers are warm and well-perfused. Exam: somnolent, arousable Disposition: discharged
--- NOTE | 2023-04-21 18:23 | ANE.PACU2 ---
Inpatient post-anesthesia follow up: Airway intact: Yes Vital signs: Temperature 97.4 F Pulse Rate 84 Respiratory Rate 18 Blood Pressure 178/96 Pulse Oximetry 96 Oxygen Delivery Me thod Room Air Oxygen Flow Rate 6 Fraction of Inspir ed Oxygen Hydration adequate: Yes Nausea and vomiting: No Pain level: 3 Mental status: Baseline
== END 2023-04-21 11:59 | disposition home or self-care (01) ==
PROVIDERS: PCP Family Medicine; Visit Provider Student in an Organized Health Care Education/Training Program
PROC: (CPT 64721; principal; 2023-04-21 08:15)
PROC: (CPT 64718; 2023-04-21 08:15)
DX: G56.02 Carpal tunnel syndrome, left upper limb (principal); G56.22 Lesion of ulnar nerve, left upper limb; K21.9 Gastro-esophageal reflux disease without esophagitis; E66.01 Morbid (severe) obesity due to excess calories; Z68.41 Body mass index [BMI] 40.0-44.9, adult; I10 Essential (primary) hypertension
CPT/HCPCS: 64718; 64721; J0131; J0330; J0690; J1885; J2704; J2710; J2795; J3010; J3490; J7030

== ENCOUNTER → 2023-05-06 13:46 | Outpatient (BNVA) | payer MEDICARE, SELFPAY | PROVIDERS: PCP Family Medicine; Visit Provider Student in an Organized Health Care Education/Training Program | DX: G56.22 Lesion of ulnar nerve, left upper limb (principal); G56.02 Carpal tunnel syndrome, left upper limb | CPT/HCPCS: 99213 ==

== ENCOUNTER 2024-05-30 08:29 | Outpatient (CLI) | payer MEDICARE, SELFPAY ==
[2024-05-08] MEDS: iohexol 350 mg/mL 500 mL Btl (per mL) PO (14:18)
--- NOTE | 2024-05-30 08:36 | CT_ITS ---
WS: [id number] CT ABDOMEN AND PELVIS WITH CONTRAST HISTORY: LUQ PAIN TECHNIQUE: Imaging performed of the abdomen and pelvis with IV contrast. Single phase imaging of the abdomen. Coronal and sagittal reformats are submitted. All CT scans at [facility] use at [address] one of these dose optimization techniques: automated exposure control; mA and/or kV adjustment per patient size (includes targeted exams where dose is matched to clinical indication); or iterative re construction. IV CONTRAST: Omnipaque 350; 100 mL IV. Oral contrast: Yes. DLP: 1428.23 mGy.cm COMPARISON: None available. Lower thorax: Dependent changes at the lung bases. Heart is normal size. Large hiatal hernia. There i s mild thickening at the GE junction displacing the oral contrast. Liver/biliary system: Normal size liver with a few scattered too small to characterize hypodensities. Normal portal vein. Gallbladder: Normally distended gallbladder with cholelithiasis. Pancreas: Normal size pancreas and pancreatic duct. No adjacent inflammation. Spleen: Normal size spleen. No mass or infarct. Adrenal glands: Normal. Right kidney: Normal. Left kidney: Exophytic cyst from the lower pole measures 1.8 x 2.1 cm. No obstruction of the kidney. Aorta: Mild atherosclerosis with no aneurysm. Lymphadenopathy: None. Free fluid: None. GI tract: No small bowel obstruction. Normal appendix. Mild diffuse constipation. Moderate distal col on diverticular burden. No acute diverticulitis. Abdominal wall: Unremarkable abdominal wall. No hernia. Pelvis: No free fluid or adenopathy. Urinary bladder is minimally distended. Bones: Moderate degenerative spondylitic changes in the lumbar spine. CT/CT abdomen pelvis w con* [id number] IMPRESSION: 1. Large size hiatal hernia. The hiatal hernia contains oral contrast and ther e is also soft tissue thickening at the GE junction. Mass at the GE junction ca nnot be excluded in this appearance. Consider upper endoscopy to exclude neopla sm at the GE junction. 2. Clear physis without acute cholecystitis. 3. No ascites or adenopathy. 4. Normal appendix. 5. Moderate distal colon diverticular disease without acute diverticulitis.
[2024-05-30 10:13] LABS: Blood Urea Nitrogen 13 mg/dL (8-23); Glomerular Filtration Rate 84.4 mL/min (90-130)
[2024-05-30] MEDS: iohexol 350 mg/mL 500 mL Btl (per mL) IV (10:16)
[2024-05-30] MEDS: iohexol 350 mg/mL 500 mL Btl (per mL) PO (10:16)
== END 2024-05-30 08:30 | disposition home or self-care (01) ==
PROVIDERS: PCP Family Medicine; Visit Provider Family Medicine
DX: K44.9 Diaphragmatic hernia without obstruction or gangrene (principal); R93.3 Abnormal findings on diagnostic imaging of other parts of digestive tract; K57.90 Diverticulosis of intestine, part unspecified, without perforation or abscess without bleeding; N28.1 Cyst of kidney, acquired
CPT/HCPCS: 74177; 82565; 84520

== ENCOUNTER 2025-06-27 14:16 | Outpatient (CLI) | payer MEDICARE, SELFPAY ==
--- NOTE | 2025-06-27 14:23 | MR_ITS ---
WS: [id number] MRI LEFT KNEE NONCONTRAST TECHNIQUE: Axial PD, coronal PD fat sat, coronal PD, sagittal PD, and sagittal PD fat-sat images obtained. CLINICAL INFORMATION: INSTABILITY OF L KNEE JOINT COMPARISON: None. FINDINGS: Advanced tricompartmental arthritis with chondrocalcinosis. Hypertrophic patella. Partial intrasubstance tear of the PCL with fluid signal and mucinous degeneration. Some of this may be chronic. Recommend correlation with acute injury. ACL appears intact. Chronic thinning of the medial and lateral meniscus. No acute appearing meniscal tears. Peripheral extrusion of the medial meniscus. Grade IV chondromalacia patella. Subchondral edema. Medial and lateral patellar retinacula appear intact. Normal lateral collateral ligament. Medial collateral ligament appears intact. Normal popliteal fossa. Small suprapatellar effusion. MR/MR knee LT wo con* [id number] IMPRESSION: 1. Advanced tricompartment arthritis. 2. Grade IV chondromalacia patella. 3. Partial intrasubstance tear involving the PCL with fluid signal and mucinou s degeneration. Some of this may be chronic. Recommend clinical correlation. 4. ACL is intact. 5. No acute appearing meniscal tears. 6. Small suprapatellar effusion. 7. No other acute findings. Outbridge grading: grade IV: full-thickness cartilage loss with underlying bone reactive changes
== END 2025-06-27 14:17 | disposition home or self-care (01) ==
PROVIDERS: PCP Family Medicine; Visit Provider Family Medicine
DX: M17.12 Unilateral primary osteoarthritis, left knee (principal); M22.42 Chondromalacia patellae, left knee; M23.622 Other spontaneous disruption of posterior cruciate ligament of left knee; M25.461 Effusion, right knee
CPT/HCPCS: 73721

== ENCOUNTER → 2025-07-04 08:55 | Outpatient (BNVA) | payer MEDICARE, SELFPAY | PROVIDERS: PCP Family Medicine; Visit Provider Student in an Organized Health Care Education/Training Program | DX: M25.562 Pain in left knee (principal); M17.12 Unilateral primary osteoarthritis, left knee; Z51.89 Encounter for other specified aftercare | CPT/HCPCS: 20610; 73560; 73565; 99214; J3301; J9999 ==